=== PATIENT | female | born 1950 | race Caucasian/White ===

== ENCOUNTER → 2017-08-11 | Outpatient (CLI) | payer OTHER ==
[2017-08-11 16:09] LABS: ALT/SGPT 13 U/L (12-78); BLOOD UREA NITROGEN 20 mg/dl (7-18); BUN/CREATININE RATIO 27.5 (10-20); CALCIUM 8.9 mg/dl (8.5-10.1); CARBON DIOXIDE 26 mmol/L (21-32); CHLORIDE 106 mmol/L (98-107); CREATININE 0.73 mg/dl (0.60-1.20); GLUCOSE 109 mg/dl (70-99); POTASSIUM 3.9 mmol/L (3.5-5.1); SODIUM 142 mmol/L (136-145)
[2017-08-11 16:19] LABS: ALB/GLOB RATIO 0.9 (0.9-2); ALKALINE PHOSPHATASE 96 U/L (45-117); AST/SGOT 18 U/L (15-37); CHOLESTEROL 193 mg/dl (0-200); CHOLESTEROL/HDL RATIO 3.5; HDL CHOLESTEROL 55 mg/dl; LDL CHOLESTEROL CALCULATED 107 mg/dl; TRIGLYCERIDES 153 mg/dl (0-150); VERY LOW DENSITY LIPOPROT CALC 31 mg/dl
== END | disposition home or self-care (01) ==
LOC: C.LABBC 09:27
PROVIDERS: ATTEND Internal Medicine
DX: Z00.00 Encounter for general adult medical examination without abnormal findings (principal); Z11.59 Encounter for screening for other viral diseases; R73.09 Other abnormal glucose; E78.5 Hyperlipidemia, unspecified

== ENCOUNTER → 2017-10-01 | Outpatient (CLI) | payer OTHER ==
--- NOTE | 2017-10-01 15:17 | MAMMOGRAPHY REPORT ---
BILATERAL DIGITAL SCREENING MAMMOGRAM TOMOSYNTHESIS WITH CAD: 10/01/2017 CLINICAL HISTORY: Routine screening. Patient has no complaints. TECHNIQUE: Breast tomosynthesis in addition to standard 2D mammography was performed. Current study was also evaluated with a Computer Aided Detection (CAD) system. COMPARISON: Comparison is made to exams dated: 02/13/2016 mammogram, 09/12/2014 mammogram, 09/09/2013 mammogram, 09/08/2012 mammogram, 09/06/2011 mammogram, and 09/05/2010 mammogram - [facility]. BREAST COMPOSITION: The tissue of both breasts is heterogeneously dense, which may obscure small mas ses. FINDINGS: No suspicious masses, calcifications, or areas of architectural distortion are noted in ei ther breast. There has been no significant interval change compared to prior exams. Scattered bilate ral benign-appearing calcifications are again noted. IMPRESSION: ACR BI-RADS CATEGORY 2: BENIGN There is no mammographic evidence of malignancy. A 1 year screening mammogram is recommended. The pa tient will receive written notification of the results. Approximately 10% of breast cancers are not detected with mammography. A negative mammographic report should not delay biopsy if a clinically suggestive mass is present. Sarah Grewal M.D. /:10/01/2017 12:40:13 Perfect Binder Feeder Offbearer: Edith MORALES)(M), [facility] [address] letter sent: Normal 1/2 BI-RADS Code: ACR BI-RADS Category 2: Benign
== END | disposition home or self-care (01) ==
LOC: C.MAMM 11:06
PROVIDERS: ATTEND Obstetrics & Gynecology
DX: Z12.31 Encounter for screening mammogram for malignant neoplasm of breast (principal)

== ENCOUNTER → 2018-02-10 | Outpatient (CLI) | payer OTHER ==
[2018-02-10 12:48] LABS: ALBUMIN 3.9 gm/dl (3.4-5.0); ALT/SGPT 16 U/L (12-78); AST/SGOT 14 U/L (15-37); BLOOD UREA NITROGEN 18 mg/dl (7-18); CALCIUM 8.9 mg/dl (8.5-10.1); CARBON DIOXIDE 28 mmol/L (21-32); CREATININE 0.82 mg/dl (0.60-1.20); GLUCOSE 90 mg/dl (70-99); SODIUM 141 mmol/L (136-145)
[2018-02-10 12:51] LABS: ALKALINE PHOSPHATASE 84 U/L (45-117); TOTAL PROTEIN 7.9 gm/dl (6.4-8.2)
== END | disposition home or self-care (01) ==
LOC: C.LAB1850 10:50
PROVIDERS: ATTEND Internal Medicine
DX: E78.5 Hyperlipidemia, unspecified (principal)

== ENCOUNTER 2021-02-27 08:27 | Observation (INO) ==
--- NOTE | 2021-01-26 11:50 | PAT Medication Instructions ---
Medication Instructions Date of Service January 26, 2021 Home Medications Medication Instructions Recorded atorvastatin 20 mg tablet 20 mg PO QPM #90 tab 04/05/20 lorazepam 0.5 mg tablet 0.5 mg PO DAILY PRN #2 tab 05/11/20 Wheeled Walker #1 ea 01/04/21 multivitamin 1 tab PO DAILY atorvastatin 20 mg tablet 20 mg PO QPM lorazepam 0.5 mg tablet 0.5 mg PO DAILY PRN calcium carbonate [Calcium 500] 500 mg PO QPM carbidopa-levodopa 2 tab PO UD sertraline 25 mg PO QPM DO NOT take the morning of surgery multivitamin 1 tab PO DAILY Take morning of surgery With a small sip of water, OTHERWISE NOTHING TO EAT OR DRINK AFTER MIDNIGHT: lorazepam 0.5 mg tablet 0.5 mg PO DAILY PRN (if needed) carbidopa-levodopa 2 tab PO UD Take evening before surgery atorvastatin 20 mg tablet 20 mg PO QPM lorazepam 0.5 mg tablet 0.5 mg PO DAILY PRN (if needed) calcium carbonate [Calcium 500] 500 mg PO QPM carbidopa-levodopa 2 tab PO UD sertraline 25 mg PO QPM Other Notes If you have any questions please call us at [phone] or [phone] or [phone] or [phone]
--- NOTE | 2021-01-30 10:59 | Anesthesiology Consultation ---
Date of Service January 30, 2021 Assessment & Plan (1) Encounter for pre-operative examination: COVID Status: As of 01/30 assessment, patient denies travel to endemic area, known exposure/sick contacts, or symptoms of COVID19. Patient instructed that they and their household members must follow strict social distancing guidelines, wear a mask in public and avoid travel/events/gatherings for 14 days prior to surgery. Preoperative COVID19 testing to be completed prior to surgery per surgeon's arrangements (pt aware). Patient made aware to self-isolate as much as possible between COVID testing and surgery. Pt is fully vaccinated. Patient has Parkinson's disease and notes that her tremor is significantly exacerbated by anxiety. Tremor is pronounced in right upper extremity and also noted in right lower extremity on exam at [facility]. She is concerned about her tremor interfering with the surgery or nerve blocks. Reassurance provided. Explained that we will give her medication that will calm her nerves and make her sleepy prior to doing SAB/regional block, and this will hopefully reduce her tremor to a level that will allow the anesthesiologist to perform the appropriate nerve blocks. Vertigo -- patient notes that she must have her head elevated above her shoulders during surgery, otherwise she will experience debilitating vertigo. Chart Review Chart Review: Acceptable Risk for Surgery and Patient seen in Pre Admission Testing Teaching & Discussion Instructed NPO after midnight before surgery, except medications with 15 cc of water. Medication instructions provided according to the [facility] guidelines. History Surgery Operation Date: 02/27/21 07:00 Proposed Procedures p Right Total Knee Arthroplasty - Nelson Roach MD Height/Weight Height: 5 ft 9 in Weight: 90.5 kg Allergies Allergy/AdvReac Type Severity Reaction Status Date / Time No Known Drug Allergies Allergy Verified 01/18/21 16:31 Medications Home Medications Medication Instructions Recorded Confirmed Last Taken multivitamin 1 tab PO DAILY 06/30/19 01/18/21 Unknown atorvastatin 20 mg tablet 20 mg PO QPM #90 tab 04/05/20 01/18/21 Unknown lorazepam 0.5 mg tablet 0.5 mg PO DAILY PRN #2 tab 05/11/20 01/18/21 Unknown Wheeled Walker #1 ea 01/04/21 Unknown calcium carbonate [Calcium 500] 500 mg PO QPM 01/18/21 01/18/21 Unknown carbidopa-levodopa 2 tab PO UD 01/18/21 01/18/21 Unknown sertraline 25 mg PO QPM 01/18/21 01/18/21 Unknown Past Medical History Medical History Hammer toe History of anxiety History of basal cell carcinoma History of depression History of transesophageal echocardiography (AYESHA) HLD (hyperlipidemia) Osteoarthritis Parkinson's disease Prediabetes A1C 6.0% Exercise / Class Metabolic Activity III < 4 Walking/Shop/Light housework (Denies SOB/CP with ambulation on one level, +SOB with any more exertion due to general inactivity/deconditioning) Past Family History Family History Mother Kidney disease Hypertension Stroke Brother Sigmoid colon injury Father Kidney disease Spinal stenosis Other Heart disease No family history of adverse response to anesthesia Osteoporosis Past Surgical History Surgical History H/O oral surgery History of basal cell carcinoma (BCC) excision History of colonoscopy S/P breast biopsy S/P dilation and curettage S/P tonsillectomy S/P tubal ligation S/P wisdom tooth extraction Past Anesthesia History No Hx of Anesthesia Complications and No Family Hx of Anesthesia Complications History of PONV No Hx of PONV and No Hx of Motion Sickness Social History Smoking Status: Never smoker Do You Dip or Chew Tobacco: No Hx Alcohol Use: No Hx Substance Use: No substance use type: does not use Review of Systems Pt denies any recent chest pain, shortness of breath, palpitations, cough, fever, URI, or uncontrolled acid reflux. Physical Exam Vital Signs BP: 153/81 (patient is very anxious today) P: 102bpm SPO2: 95% RA T: 97.5F R: 12 ENMT Mouth: + dentures (partial, does not wear usually); no chipped teeth and no loose teeth Thyromental Distance: > or= 3.5 Finger Breadths Mallampati Class: II Neck normal visual inspection and + limited neck extension (mildly) Respiratory normal respiratory effort, lungs clear to auscultation Cardiovascular Rate/Rhythm: regular rhythm and + tachycardic Heart Sounds: no murmur Extremities: no edema Neurologic Motor/Sensory: + tremor (pronounced, bradley in RUE) Testing Laboratory Results 01/30/21 11:02 01/30/21 11:02 PT 10.0 Seconds (9.0-12.0) 01/30/21 11:02 INR 1.0 (0.9-1.1) 01/30/21 11:02 APTT 22.7 Seconds (21.0-31.0) 01/30/21 11:02 Blood Type A Positive 01/30/21 11:02 Antibody Screen NEGATIVE 01/30/21 11:02 Electrocardiogram Date: 01/30/21 Findings: + NSR @ (90bpm) Nonspecific T wave abnormality. Patient was significantly anxious/tense, some artifact noted on EKG. Chest X-Ray Date: 01/30/21 Findings: + NAD
--- NOTE | 2021-01-30 11:35 | XRay Report ---
XR chest Pre-admission PA/Lat CLINICAL HISTORY: Preoperative chest COMPARISON STUDY: No previous studies for comparison. FINDINGS: The cardiac and mediastinal contours are normal. There is no evidence of focal pulmonary co nsolidation. There is no evidence of failure. No pleural effusions are visualized.[There is a promine nt left cardiophrenic angle fat pad. IMPRESSION: No active disease in the chest. ACT 112: Negative or not required by law. Electronically signed by: Arash Amezquita M.D. 01/30/2021 11:34 AM
[2021-01-30 11:36] LABS: Basophils # (auto) 0.05 K/uL (0-0.2); Basophils % (auto) 0.5 %; Eosinophils % (auto) 2.1 %; Hematocrit (blood only) 39.8 % (37-47); Hemoglobin 12.9 g/dL (12.0-16.0); Immature Granulocytes # (auto) 0.03 K/uL (0.00-0.02); Immature Granulocytes % (auto) 0.3 %; Lymphocytes # (auto) 3.35 K/uL (1.2-3.4); Lymphocytes % (auto) 34.9 %; Mean Corpuscular Hgb Conc 32.4 g/dL (32-36); Mean Corpuscular Volume 89.4 fL (80-100); Mean Platelet Volume 10.4 fL (7.4-10.4); Monocytes # (auto) 0.53 K/uL (0.11-0.59); Monocytes % (auto) 5.5 %; Neutrophils # (auto) 5.44 K/uL (1.4-6.5); Neutrophils % (auto) 56.7 %; Platelet Count 251 K/uL (130-400); RDW Coefficient of Variation 13.4 % (11.5-14.5); RDW Standard Deviation 44.1 fL (36.4-46.3); Red Blood Count 4.45 M/uL (4.2-5.4)
[2021-01-30 11:46] LABS: Partial Thromboplastin Ratio 0.9; Partial Thromboplastin Time 22.7 Seconds (21.0-31.0)
[2021-01-30 13:13] LABS: BUN Creatinine Ratio 32.7 (10-20); Calcium 8.9 mg/dl (8.5-10.1); Creatinine Clr Calc Pharmacy 87.1 ml/min; Est GFR (African American) 98.3; Est GFR (Non-African American) 84.9
--- NOTE | 2021-01-30 14:47 | Electrocardiogram Report ---
Test Reason : Blood Pressure : / mmHG Vent. Rate : 090 BPM Atrial Rate : 090 BPM P-R Int : 140 ms QRS Dur : 070 ms QT Int : 330 ms P-R-T Axes : 070 059 024 degrees QTc Int : 403 ms Normal sinus rhythm Nonspecific T wave abnormality Abnormal ECG No previous ECGs available Confirmed by August Jang ([id number]) on 01/30/2021 2:46:37 PM Referred By: Nelson Roach Confirmed By:August Jang
--- NOTE | 2021-02-20 23:25 | History and Physical Report ---
DATE OF ADMISSION: 02/27/2021 CHIEF COMPLAINT: Right knee pain. HISTORY OF PRESENT ILLNESS: The patient is a 71-year-old female with some underlying Parkinson's disease, who presents for surgical treatment of her right knee. She has got a long history of right knee pain and discomfort that has gradually gotten worse over time. She was actually scheduled to have her knee replaced, but her pain seemed to be getting a little bit better and we canceled her surgery. Over the past year, she developed increased pain and discomfort and it has gotten particularly worse over the past 6-8 months. No recent injury. It hurts her all the time. It is global pain. The more she is on it, the more it hurts. She has difficulty living an independent lifestyle due to this. She would like to have her knee fixed now. PAST MEDICAL HISTORY: 1. Parkinson's disease. 2. Gastroesophageal reflux disease. 3. Hiatal hernia. PAST SURGICAL HISTORY: Previous surgeries, none recorded. ALLERGIES: None. CURRENT MEDICATIONS: Include, 1. Carbidopa/levodopa. 2. Sertraline. 3. Lorazepam 0.5 mg p.r.n. 4. ICAPS. SOCIAL HISTORY: A 71-year-old female. She is . Lives with her son. Does not smoke. FAMILY HISTORY: Noncontributory. REVIEW OF SYSTEMS: Significant for Parkinson's disease, which affects the right lower extremity more than the left. No current chest pain or shortness of breath. No history of DVT or PE. No known bleeding problems. PHYSICAL EXAMINATION: GENERAL: Physical examination shows a pleasant elderly female. Looks to be in reasonably good health. HEENT: Benign. NECK: Supple. No lymphadenopathy. LUNGS: Clear to auscultation. HEART: Regular rate and rhythm. ABDOMEN: Soft, nontender, nondistended. EXTREMITIES: Grossly neurovascularly intact except as follows. Examination of the right leg revealed the patient walks with a bit of a limp on the side. She does have a tremor on the right side more so than the left. Her range of motion is about 5 degrees short of full extension to 120 degrees of flexion. She has got bony hypertrophy medially and tender along the medial joint line. Small knee effusion. No pain with hip motion. X-RAYS: X-rays of the right knee reviewed. She has advanced right knee DJD. She has complete loss of medial joint space. She has got some tibiofemoral subluxation. She has got osteophytes primarily on the medial side of her knee. ASSESSMENT: A 71-year-old female with underlying Parkinson's disease along with some gastroesophageal reflux disease and a hiatal hernia with advanced right knee degenerative joint disease. She has been scheduled for surgery in the past but canceled as her symptoms were pretty manageable. Symptoms progressed over the past 6-8 months and she would like to have her knee fixed now. PLAN: Will proceed with right knee replacement. The risks and benefits of the procedure were explained to the patient including, but not limited to, DVT, PE, , infection, neurological injury, neurovascular injury, bleeding problems, pain, limited range of motion, stiffness, failure to relieve symptoms, incomplete relief of symptoms, need for further surgery in the future, fracture, leg length inequality, nerve palsy, etc. The patient understands and desires to proceed. Informed consent was obtained. We did talk about her Parkinson's disease and it makes the results a little bit less predictable especially with knee extension and spasticity. We will work hard on getting her knee straight. As far as discharge plan, she is planning to be discharged to home using [facility] home health program. Lives with her son and her daughter is from out of town who is coming in to assist with her care.
[~2021-02-27 08:27] MED LIST: ACETAMINOPHEN 500 MG TAB PO SCH; BUPIVACAINE 0.25% 30 ML VIAL ONE; BUPIVACAINE 0.5 % 5 MG/1 ML PF 10ML VIAL ONE; BUPIVACAINE LIPOSOME/PF 266 MG, BUPIVACAINE/EPINEPHRINE 50 ML, SODIUM CHLORIDE 0.9% 30 ... INFIL SCH; FAMOTIDINE 20 MG TAB PO SCH; GABAPENTIN 300 MG CAP PO SCH; LR 500ML BOLUS, THEN 15ML/HR IV SCH; LR 60ML/HR IV SCH; METOCLOPRAMIDE HCL 10 MG TABLET PO SCH; Scopolamine 1 MG TDSY TD SCH; TRANEXAMIC ACID 1,000 MG **IV Intra-op IV SCH; TRANEXAMIC ACID 1,000 MG **IV Pre-op IV SCH; ceFAZolin 2000MG 2,000 MG/15 ML SYR IV SCH
--- NOTE | 2021-02-27 08:53 | History & Physical Bridge Note ---
Date of Service February 27, 2021 History & Physical Bridge Note I have examined the patient, reviewed the History & Physical and in the interval since the performance of the History & Physical I have noted the following changes of clinical significance: no changes noted
[2021-02-27] MEDS ORDERED: MIDAZOLAM HCL 1 MG/ML 2ML VIAL ONE (10:11)
[2021-02-27] MEDS ORDERED: SODIUM CHLORIDE 0.9% PF 50 ML VIAL ONE (10:57)
[2021-02-27] MEDS ORDERED: BUPIVACAINE 0.25% 30 ML VIAL ONE (10:57)
[2021-02-27] MEDS ORDERED: EPINEPHrine INJ 1 MG/ML AMP ONE (10:57)
[2021-02-27] MEDS ORDERED: BUPIVACAINE LIPOSOME 1.3% 266 MG/20 ML VIAL ONE (10:58)
[2021-02-27] MEDS ORDERED: ONDANSETRON INJ 2 MG/ML 2 ML VIAL IV PRN ×2 (11:08→14:53)
[2021-02-27] MEDS ORDERED: ePHEDrine sulfate 50 MG/ML AMP IV PRN (11:08)
[2021-02-27] MEDS ORDERED: ATROPINE SULFATE 0.1 MG/ML 10ML SYR IV PRN (11:08)
[2021-02-27] MEDS ORDERED: PROPOFOL IV EMULSION 10 MG/ML 20 ML VIAL IV ONE (11:44)
[2021-02-27] MEDS ORDERED: ONDANSETRON INJ 2 MG/ML 2 ML VIAL ONE (11:45)
--- NOTE | 2021-02-27 13:02 | Operative Report ---
Post Operative Report Pre & Post Diagnosis Operation Date: 02/27/21 10:40 Pre-Op Diagnosis: Right Knee Degenerative Joint Disease Post-Op Diagnosis: Right Knee Degenerative Joint Disease I identified the patient and participated in the time-out.: Yes Procedure Operation Date: 02/27/21 10:40 Actual Procedures p Right Total Knee Arthroplasty, Cemented(Right) - Nelson Roach MD Surgeon Nelson Roach MD University Relations Director GORDO Thorne Estimated Blood Loss 50 Findings Consistent with Post-Op Diagnosis Operative findings with advanced right knee DJD. She had grade 4 [id number] disease of the medial as well as patellofemoral compartments. She had some spotty grade 4 changes laterally as well. She had a varus deformity to her knee with a slight flexion contracture and a moderate to large knee joint effusion. Fluids 1500 cc. Specimens Right knee sent for pathology. Drains None. Anesthesia Type Spinal MAC Complications none Disposition Accompanied Patient To Recovery: No Disposition: Recovery Room Indications Patient is a 71-year-old female whose had a long history of bilateral knee pain discomfort right side greater than left. She been to the extent of conservative treatment the past which became less successful more recently. She does have underlying Parkinson's disease. She is having more more trouble getting around and she elected to a total knee arthroplasty. Description of Procedure Operative implants consist of: 1. Biomet Vanguard size 67.5 right posterior stabilized femoral component. 2. Biomet size 67 tibial tray. 3. 10 mm posterior stabilized polyethylene insert. 4. 31 x 8 all polypatella. The patient was taken to the operating room, identified, placed in the operating table supine position but all contact areas were properly padded. IV antibiotics tried by anesthesia team. A spinal anesthetic and abductor canal block had provided holding area. Boyd catheter was placed in sterile fashion. Right thigh tip was then placed in the right lower extremities and prepped and draped in usual sterile fashion. The right leg was elevated exsanguinated with the use of an Esmarch and tourniquet placed at 300 mmHg. An anterior approach to the right knee was then performed through longitudinal incision centered over the patella. Sharp dissection was carried through subcutaneous tissue down the extensor mechanism. A medial parapatellar arthrotomy with incision was made. Some subperiosteal dissection was carried out medially. The fat pad was resected from each patella tendon. Lateral patellofemoral ligament was released. Patella was subluxated laterally and the knee was flexed. The osteophytes were taken off distal femur. The ACL and PCL were then released from the distal femur and the tibia subluxated anteriorly. The external tibial alignment jig was then placed in the interface the tibia and adjusted 14 mm medially. Proximal tibial cut was made remove about a millimeter or 2 of bone from the most deficient aspect medial tibial plateau. Some osteophytes taken off medial and posterior medially. Tibia sized to a size 67. We did have to downsize a slightly in order to get proper rotation. Attention drawn the femur. The distal femur during the sharp drop with intramedullary canal was suction. A right 5 degree valgus cutting guide was placed. The distal femoral cutting block was pinned in place. Distal femoral cut was made to take an additional 3 mm of bone off distal femur. The femur was then sized to a size 67.5. The AP cutting block was pinned parallel to the epicondylar axis which was 3 degrees of external rotation. The anterior cut, anterior chamfer, posterior cut, posterior chamfer cuts were made. The box cutting guide was placed in just slight lateral and the box cut was made. The knee was flexed. The remnants of the medial and lateral menisci were excised. The osteophytes were taken off the posterior aspect the femur. A trial femoral component was placed. The tibial tray was pinned in maximum external rotation and the drill and stem punch were used to create defect in proximal tibia for the tibial tray. Knee was then trialed and the 10 mm insert fit most appropriately. I did 1 to leave her knee a little bit loose due to her Parkinson's disease and tendency toward spasticity. Attention drawn to the patella. The patella was cleaned of all soft tissues. Patella thickness measured 21 mm in thickness was cut down to 13. Was sized to a size 31 patella. The lug holes for the 31 patella were drilled. The lateral osteophyte was removed. Patella button was placed. Knee was taken through range of motion patella tracked nicely with no thumbs test. Attention drawn to placing permanent components. Nupathe all trial components were removed. A bone plug was placed in the distal femur limit blood loss. A double batch Palacos G cement was mixed. BiomGeoGraffitiguard size 67.5 right posterior stabilized femoral component, size 67 tibial tray, a 10 mm posterior stabilized polyethylene insert, and a 31 x 8 all polypatella were then cemented in place. Knee was brought out in full extension total cement hardened. Final cement check was then performed. Pericapsular tissues were injected with a total of 100 cc of combination of 20 cc of Exparel, 30 cc normal saline, 50 cc of quarter percent Marcaine with epinephrine. Patient did receive 1 g tranexamic acid. The tourniquet was then let down for final tourniquet time of 54 minutes. Hemostasis assured use electrocautery. Extensor mechanism then closed with combination 1 PDS suture #1 Vicryl suture in [id number] fashion. Extensor mechanism checked found to be intact the subcutaneous tissue then closed with 2 Dexon suture in a buried interrupted fashion skin was closed skin maile. Leg was then cleaned dried a sterile dressing both Xeroform, 4 x 4's, sterile cast padding, Kenan bandage were applied. Patient then transferred to the recovery room in stable condition. Patient tolerated procedure well and there were no complications. Jarad Thorne, my physician data analysis assistant, was present for the entire procedure. His assistance was essential and required for appropriate patient positioning, prepping and draping, surgical exposure, performing the technical details of the operation, placement the implants, closure of the wound, and placement of the sterile bandage. I attest to the content of the Intraoperative Record and any orders documented therein. Any exceptions are noted below.
--- NOTE | 2021-02-27 13:17 | XRay Report ---
XR knee RT 1 or 2V routine CLINICAL HISTORY: Postoperative evaluation. COMPARISON: Right knee radiographs November 21, 2020. FINDINGS: Alignment of the total right knee arthroplasty is anatomic. There is no periprosthetic fra cture or unexpected radiopaque foreign body. There are skin maile. IMPRESSION: Expected findings following total right knee arthroplasty. ACT 112: Negative or not required by law. Electronically signed by: Brown Gould M.D. 02/27/2021 1:16 PM
--- NOTE | 2021-02-27 14:10 | Anesthesiology Progress Note ---
Date of Service February 27, 2021 Anesthesia Post Procedure Vital Signs Vital Signs: Temp Pulse Resp BP BP Pulse Ox 02/27/21 13:25 36.5 C 88 20 128/67 94 02/27/21 13:15 36.5 C 86 16 121/66 94 02/27/21 13:05 97 H 19 145/60 H 95 02/27/21 12:56 36.0 C L 97 H 16 116/75 98 02/27/21 09:39 36.7 C 103 H 18 156/79 H 98 Transfer of Care Handoff Completed per policy Notes Mental Status: alert / awake / arousable and participated in evaluation Patient Amnestic to Procedure: Yes Nausea / Vomiting: adequately controlled Pain: adequately controlled Airway Patency, RR, SpO2: stable & adequate BP & HR: stable & adequate Hydration State: stable & adequate Neuraxial Anesthesia: was administered and sensory block is resolving Anesthetic Complications: no major complications apparent and Pt Satisfied with anesthetic care
[2021-02-27] MEDS ORDERED: bisacodyL 10 MG SUPP PR PRN (14:53)
[2021-02-27] MEDS ORDERED: ALUMINUM/MAGNESIUM SUSP 30 ML UDC PO PRN (14:53)
[2021-02-27] MEDS ORDERED: traMADol HCL 50 MG TABLET PO PRN (14:53)
[2021-02-27] MEDS ORDERED: NALOXONE HCL 0.4 MG/1 ML VIAL/CARP IV PRN (14:53)
[2021-02-27] MEDS ORDERED: METOCLOPRAMIDE HCL INJ 5 MG/ML 2 ML VIAL IV PRN (14:53)
[2021-02-27] MEDS ORDERED: HYDROmorphone INJ 0.5 MG/0.5 ML SYR IV PRN (14:53)
[2021-02-27] MEDS ORDERED: MAGNESIUM HYDROXIDE SUSP 30 ML UDC PO PRN (14:53)
[2021-02-27] MEDS: CARBIDOPA/LEVODOPA 25/100MG TAB PO SCH ×2 (15:51→19:50)
[2021-02-27] MEDS: KETOROLAC TROMETHAMINE 15 MG/ML VIAL IV SCH ×2 (16:00→21:12)
[2021-02-27] MEDS: SODIUM CHLORIDE 0.9% 1000ML 1,000 ML IV SCH (16:01)
[2021-02-27] MEDS: Scopolamine CHECK PATCH PLACEMENT SCH ×2 (16:01→22:14)
[2021-02-27] MEDS: ASCORBIC ACID 500 MG TAB PO SCH (17:57)
[2021-02-27] MEDS: ACETAMINOPHEN 500 MG TAB PO SCH ×2 (17:57→22:14)
[2021-02-27] MEDS: FERROUS GLUCONATE 324 MG TAB PO SCH (17:57)
[2021-02-27] MEDS ORDERED: TRANEXAMIC ACID / 0.7% NACL 1,000 MG/100 ML BAG IV SCH (19:00)
[2021-02-27] MEDS: PROSOURCE NO CARB 30 ML/PKT PO SCH (19:13)
[2021-02-27] MEDS: ceFAZolin 2000MG 2,000 MG/15 ML SYR IV SCH (19:50)
[2021-02-27] MEDS ORDERED: ATORVASTATIN 20 MG TAB PO SCH (21:00)
[2021-02-27] MEDS ORDERED: SENNA 8.6 MG TAB PO SCH (21:00)
[2021-02-27] MEDS ORDERED: CARBIDOPA/LEVODOPA 25/100MG TAB PO SCH (21:00)
[2021-02-27] MEDS ORDERED: SERTRALINE HCL 50 MG TABLET PO SCH (21:00)
[2021-02-27] MEDS ORDERED: CALCIUM CARBONATE 1250MG TAB PO SCH (21:00)
[2021-02-27] MEDS: ASPIRIN 81 MG ECTAB PO SCH (21:09)
[2021-02-27] MEDS: DOCUSATE SODIUM 100 MG CAP PO SCH (21:10)
[2021-02-28] MEDS: SODIUM CHLORIDE 0.9% 1000ML 1,000 ML IV SCH (02:51)
[2021-02-28] MEDS: ACETAMINOPHEN 500 MG TAB PO SCH ×2 (05:22→14:49)
[2021-02-28] MEDS: ceFAZolin 2000MG 2,000 MG/15 ML SYR IV SCH (05:22)
[2021-02-28] MEDS: KETOROLAC TROMETHAMINE 15 MG/ML VIAL IV SCH ×3 (05:22→16:32)
[2021-02-28 06:51] LABS: Hematocrit (blood only) 33.2 % (37-47); Hemoglobin 10.7 g/dL (12.0-16.0); Mean Corpuscular Hemoglobin 28.6 pg (25-34); Mean Corpuscular Hgb Conc 32.2 g/dL (32-36); Mean Corpuscular Volume 88.8 fL (80-100); Mean Platelet Volume 10.2 fL (7.4-10.4); Platelet Count 195 K/uL (130-400); RDW Coefficient of Variation 13.4 % (11.5-14.5); RDW Standard Deviation 43.8 fL (36.4-46.3); Red Blood Count 3.74 M/uL (4.2-5.4); White Blood Count 9.14 K/uL (4.8-10.8)
[2021-02-28 07:24] LABS: Calcium 8.7 mg/dl (8.5-10.1); Creatinine Clr Calc Pharmacy 82.4 ml/min; Est GFR (African American) 92.1; Est GFR (Non-African American) 79.5; Potassium 4.1 mmol/L (3.5-5.1)
[2021-02-28] MEDS: CARBIDOPA/LEVODOPA 25/100MG TAB PO SCH ×2 (07:32→14:49)
[2021-02-28] MEDS: FERROUS GLUCONATE 324 MG TAB PO SCH (07:33)
[2021-02-28] MEDS: ASCORBIC ACID 500 MG TAB PO SCH (07:33)
[2021-02-28] MEDS: Scopolamine CHECK PATCH PLACEMENT SCH (07:35)
[2021-02-28] MEDS: PROSOURCE NO CARB 30 ML/PKT PO SCH ×2 (07:57→12:42)
[2021-02-28] MEDS ORDERED: dexAMETHasone 4 MG TAB PO SCH (08:00)
[2021-02-28] MEDS: ASPIRIN 81 MG ECTAB PO SCH (08:57)
[2021-02-28] MEDS: DOCUSATE SODIUM 100 MG CAP PO SCH (08:57)
[2021-02-28] MEDS ORDERED: LORazepam 1 MG TAB PO SCH (09:00)
[2021-02-28] MEDS ORDERED: MULTIVITAMIN TAB PO SCH ×2 (09:00)
--- NOTE | 2021-02-28 16:19 | Progress Notes ---
DATE: 02/28/2021 SUBJECTIVE: A 71-year-old female postop day 1 from right knee replacement. She is doing well. Not having near as much pain as she expected. Therapy went well. No chest pain or shortness of breath. Not feeling dizzy or lightheaded. OBJECTIVE: VITAL SIGNS: Temperature 36.5. Vital signs stable. GENERAL: Shows a pleasant elderly female. She is sitting up at her bedside chair, looks comfortable. LUNGS: Clear to auscultation. HEART: Regular rate and rhythm. ABDOMEN: Soft, nontender, nondistended. EXTREMITIES: Grossly neurovascularly intact except as follows. Examination of the right leg reveals the dressing to be clean, dry and intact. She can dorsiflex and plantarflex her foot appropriately. She is neurologically intact. She has got brisk refill. LABORATORY DATA: Hemoglobin 10.7. Hematocrit 33.2. Electrolytes are stable. ASSESSMENT: A 71-year-old female postop day 1 from right knee replacement, doing well. Pain is controlled. She is neurologically intact. PLAN: 1. DVT prophylaxis including thigh-high TEDs, SCDs, and aspirin twice a day. 2. PT/OT. Weight bear as tolerated. Right total knee protocol. 3. Pain control, doing well with current pain regimen. 4. Disposition: Plan to discharge to home with some home health later today.
== END 2021-02-28 16:45 | disposition home health service (06) ==
LOC: 3E 08:27 → ASU 08:27

== ENCOUNTER 2021-04-23 10:59 | Inpatient (IN) ==
[2021-04-23] MEDS ORDERED: ASPIRIN CHEW 324 MG PO STA (11:55)
[2021-04-23] MEDS ORDERED: dilTIAZem HCl 5 MG/ML 5 ML VIAL IV STA (11:55)
[2021-04-23] MEDS ORDERED: STAT IV Infusion **Titration per Protocol STA (11:56)
[2021-04-23] MEDS ORDERED: dilTIAZem HCl 5 MG/ML 5 ML VIAL IV ONE (11:56)
[2021-04-23 12:03] LABS: Basophils # (auto) 0.07 K/uL (0-0.2); Basophils % (auto) 0.7 %; Eosinophils # (auto) 0.15 K/uL (0-0.5); Eosinophils % (auto) 1.6 %; Hematocrit (blood only) 42.1 % (37-47); Hemoglobin 13.3 g/dL (12.0-16.0); Immature Granulocytes # (auto) 0.02 K/uL (0.00-0.02); Immature Granulocytes % (auto) 0.2 %; Lymphocytes # (auto) 3.46 K/uL (1.2-3.4); Mean Corpuscular Hgb Conc 31.6 g/dL (32-36); Mean Corpuscular Volume 91.7 fL (80-100); Mean Platelet Volume 10.7 fL (7.4-10.4); Monocytes # (auto) 0.66 K/uL (0.11-0.59); Monocytes % (auto) 6.9 %; Neutrophils # (auto) 5.24 K/uL (1.4-6.5); Neutrophils % (auto) 54.6 %; Platelet Count 319 K/uL (130-400); RDW Coefficient of Variation 13.7 % (11.5-14.5); Red Blood Count 4.59 M/uL (4.2-5.4)
[2021-04-23 12:10] LABS: Partial Thromboplastin Ratio 0.8; Partial Thromboplastin Time 21.7 Seconds (21.0-31.0); Prothrombin Time 10.2 Seconds (9.0-12.0)
[2021-04-23 12:13] LABS: D Dimer 2140 ug/L FEU (0-500)
[2021-04-23] MEDS: dilTIAZem HCL 125 MG in DEXTROSE 5% 100 ML IV SCH ×2 (12:13→22:45)
[2021-04-23 12:37] LABS: BUN Creatinine Ratio 23.6 (10-20); Blood Urea Nitrogen 19 mg/dl (7-18); Carbon Dioxide 25 mmol/L (21-32); Chloride 108 mmol/L (98-107); Creatinine Clr Calc Pharmacy 73.1 ml/min; Est GFR (Non-African American) 72.5 ml/min; Glucose 135 mg/dl (70-99); Lipase 169 U/L (73-393); Magnesium 2.3 mg/dl (1.8-2.4); Potassium 3.7 mmol/L (3.5-5.1); Sodium 140 mmol/L (136-145)
[2021-04-23 12:42] LABS: Troponin I < 0.015 ng/ml (0-0.045)
[2021-04-23] MEDS ORDERED: OPTIRAY 320 100ml IV ONE (13:29)
--- NOTE | 2021-04-23 13:50 | CT Scan Report ---
CT ANGIOGRAM OF THE CHEST CLINICAL HISTORY: Atypical chest pain. Dyspnea. COMPARISON STUDY: Chest x-ray dated 01/30/2021. TECHNIQUE: Following the IV administration of 120 cc of Optiray 320, CT angiogram of the chest was pe rformed from the upper abdomen to the thoracic inlet utilizing the pulmonary embolus protocol. Images are reviewed in the axial, sagittal, and coronal planes. 3-D MIPS images are created and assessed. I V contrast was administered without complication. A dose lowering technique was utilized adhering to the principles of ALARA. CT DOSE: 634.69 mGy.cm FINDINGS: Thyroid: Imaged portions of the thyroid gland are normal in size and attenuation. Thoracic aorta: There is mild atherosclerotic calcification of the thoracic aorta, which is normal in caliber and demonstrates standard 3-vessel arch anatomy. No dissection is seen. Pulmonary vasculature: The pulmonary trunk is normal in caliber. There are no filling defects identif ied in main, lobar, or segmental pulmonary branches to suggest pulmonary embolus. Heart: The heart is mildly enlarged and without pericardial effusion. There are scattered coronary ar sebas calcifications. Lungs and pleural spaces: Evaluation of the lung parenchyma is degraded by motion artifact. There is no airspace consolidation or pleural effusion. Atelectasis is noted at the lung bases. The trachea an d central airways are clear. A 4 mm left lower lobe pulmonary nodule is seen on image #66. There are scattered calcified granulomas. Mediastinum: There is no mediastinal lymphadenopathy. Litzy: Clear. Axillae: There is no axillary lymphadenopathy. Upper abdomen: Partially visualized upper abdominal viscera is within normal limits. Skeletal structures: The skeletal structures are osteopenic. No lytic or blastic bony lesions are see n. IMPRESSION: 1. There is no evidence of pulmonary embolus in the main, lobar, or segmental pulmonary arteries. 2. There is no airspace consolidation or pleural effusion. 3. Mild cardiomegaly. 4. There is a 4 mm left lower lobe pulmonary nodule. This can be followed as per the Fleischner crite henry if clinically warranted. 5. Additional findings as above. Please refer to below summary of Fleischner criteria recommendations for follow-up of incidental CT n odules (Oscar Marcus, Guidelines for management of small pulmonary nodules detected on CT scans: A sta tement from the Fleischner Society, Radiology 237: [id number].) SOLID NODULES Solitary nodule size: <6 mm * low risk patients: no follow-up needed * high risk patients: optional CT at 12 months Solitary nodule size: 6-8 mm * low risk patients: follow-up at 6-12 months, then consider further follow-up at 18-24 months * high risk patients: initial follow-up CT at 6-12 months and then at 18-24 months if no change Solitary nodule size: >8 mm * either low or high risk patients - consider follow-up CT at 3 months, and/or CT-PET, and/or biopsy Multiple nodules size: <6 mm * low risk patients: no routine follow-up * high risk patients: optional CT at 12 months Multiple nodules size: 6-8 mm * low risk patients: follow-up at 3-6 months, then consider further follow-up at 18-24 months * high risk patients: follow-up at 3-6 months, then at 18-24 months if no change Multiple nodules size: >8 mm * low risk patients: follow-up at 3-6 months, then consider further follow-up at 18-24 months * high risk patients: follow-up at 3-6 months, then at 18-24 months if no change Note: newly detected indeterminate nodule in persons 35 years of age or older. * low risk patients: minimal or absent history of smoking and/or other known risk factors * high risk patients: history of smoking or of other known risk factors (e.g. first degree relative with lung cancer, or exposure to asbestos, radon, uranium) * if a nodule up to 8 mm is partly solid or is ground glass further follow-up is required after 24 m onths to exclude possible slow growing adenocarcinoma (MAE) SUBSOLID NODULES Solitary pure ground-glass nodule * nodule size <6 mm - no CT follow-up required * nodule size >=6 mm - follow-up CT at 6-12 months, then every 2 years until 5 years Solitary part-solid nodule * nodule size <6 mm - no CT follow-up required * nodule size >=6 mm - follow-up CT at 3-6 months. If unchanged, and solid component remains <6 mm, then annual follow-up for 5 years Multiple subsolid nodules * nodule size <6 mm - follow-up CT at 3-6 months, consider further follow-up at 2 and 4 years if sta ble * nodule size >=6 mm - follow-up CT at 3-6 months, subsequent management based on the most suspiciou s nodule(s) ACT 112: Negative or not required by law. Electronically signed by: Sylvester Mills M.D. 04/23/2021 1:49 PM
[2021-04-23] MEDS ORDERED: APIXABAN 5 MG TABLET PO STA (15:20)
[2021-04-23] MEDS: dilTIAZem HCl 5 MG/ML 5 ML VIAL IV PRN ×2 (15:25→15:35)
--- NOTE | 2021-04-23 15:37 | History & Physical Report ---
Date of Service April 23, 2021 Assessment & Plan (1) Afib: Variable rate and rythm, tremor from parkinson's increasing artifact as well. - Irregular with auscultation, no murmurs, no rubs - New onset afib likely- goal for tonight is rate control as time unknown in this dysrhythmia. - Continue Diltiazem drip for now- repeated 10mg IV bolus x1 in EMD with decrease in HR to 90s, still irregular and no discernable Pwaves - PRN Dilt bolus over night with goal HR 110 or less - K- 3.7-- 20 meq PO K x1 - MG- 2.3 - TSH pending - Random Cortisol pending - Symptoms of dizziness and chest tightness are resolving with rate control - Cardiology consulted- appreciate recommendations for rhythm vs. rate control options and anticoaguation. -Check echocardiogram (2) Hypertension: Continue Lisinopril 10 mg daily. - Goal <140 (3) Hyperlipidemia: No acute needs, continue 20mg Atorvastatin daily (4) Parkinsons disease: ?idiopathic, follows with neurology- declined medication adjustment at last visit - Continue Sinemet 2/100 2 daily - Recently declined dose or medication adjustment (5) Arthritis: Continue tylenol PT/OT (6) Elevated random blood glucose level: FSBG on BMP 133- no agents and not reported on PCP visits. HGB A1C last week <6.0 - no acute needs, follow while in house. - Goal <180 (7) Anticoagulation adequate: Started on Eliquis first dose given in EMD - Appreciate recommendations with cardiology - As per HPI discussion with options and needs had with patient and son. - Evaluate her through her stay and adjust therapy as indicated/needed. (8) Lung nodule: incidental finding on CT of the chest - consult placed to lung nodule program. 4mm DVT prophylaxis-Eliquis Disposition-admit to PCU History of Present Illness Primary Care Provider: Vandana Boucher MD 71 YOF with past medical history of: HTN(recently started on Lisinopril by PCP), HLD, Parkinson disease, neuropathy, DJD, s/p total R TKA (03/16). Patient reports that her rehab was doing well and she seen her PCP on Friday and was recently started on lisinopril for her HTN. She started feeling "off" on Friday, which what was further described as some palpitations in her chest as well as some tightness along her chest, she was also noting that she was having some dizziness when standing and more dyspnea than she normally has when walking with her walker. She denies any syncope or any other neurological changes. She was brought to the [facility] by her son, and was noted to be in narrow complex irregular rhythm with rates to the 150's. She was already started on Diltiazem drip following a 10mg bolus which decreased her HR to the 120's, but was back in the 140's on my evaluation, she had a CTA of her chest performed secondary to her elevated D-dimer, which did not reveal a PE or other acute chest/cardiac pathology. This does appear to be new onset afib for this patient, we will admit patient to the hospital for rate control, start on Eliquis, ECHO, and cardiology consult for rhythm control evaluation and continue workup for other causes. She does recall going to cardiology in the past for possible mitral valve prolapse and some palpitations, this was noted to be in 2018, her last ECHO reviewed from 2001 showed small right to left atrial shunting and mitral valve prolapse and trivial mitral regurgitation. Her last colonoscopy in 2010 was normal and she denies any history of blood in her stools or abnormal bleeding. As we are unsure of her onset of atrial fibrillation and possibility of rhythm control, after a long discussion with her and her son regarding anticoagulation options and risks, we elected to start the patient on Eliquis 5mg PO BID. Her CHADSVASC is 4 (if include thoracic aortic plaque seen on CTA chest) and HAS- BLED is 2. Allergies Allergy/AdvReac Type Severity Reaction Status Date / Time No Known Drug Allergies Allergy Mild Unknown Verified 04/23/21 14:54 tramadol AdvReac Mild Headache Verified 04/23/21 14:54 Home Medications Medication Instructions Recorded Confirmed Type multivitamin 1 tab PO DAILY 06/30/19 04/23/21 History Wheeled Walker #1 ea 01/04/21 04/23/21 Rx calcium carbonate [Calcium 500] 500 mg PO QPM 01/18/21 04/23/21 History sertraline 25 mg PO QPM 01/18/21 04/23/21 History carbidopa 25 mg-levodopa 100 mg 2 tab PO UD #210 tab 02/20/21 04/23/21 Rx tablet atorvastatin 20 mg tablet 20 mg PO QPM #90 tab 03/29/21 04/23/21 Rx Past Med/Surg History Medical History Hammer toe History of anxiety History of basal cell carcinoma History of depression History of transesophageal echocardiography (AYESHA) HLD (hyperlipidemia) Osteoarthritis Parkinson's disease Prediabetes A1C 6.0% Surgical History H/O oral surgery History of basal cell carcinoma (BCC) excision History of colonoscopy S/P breast biopsy S/P dilation and curettage S/P tonsillectomy S/P tubal ligation S/P wisdom tooth extraction Family History Mother Kidney disease Hypertension Stroke Brother Sigmoid colon injury Father Kidney disease Spinal stenosis Other Heart disease No family history of adverse response to anesthesia Osteoporosis Social History Smoking Status: Never smoker Second Hand Exposure: Yes (as a child); Hx Alcohol Use: No Hx Substance Use: No Preferred Language: Ivorian Communication Ability: Effective Visual Impairment: No Limitations Hearing Ability: Normal Chopper Feeder Required: No Beliefs That Will Affect Care: None marital status: Current Living Situation: Family Current Living Situation Comment: with son current occupational status: retired Feels Safe at Home: Yes Dental Care, Regularly: No Physical Activity Frequency: Does not Exercise Seatbelt Use: always Assistive Devices: Glasses and Walker Review of Systems Review of Systems: REVIEW OF SYSTEMS: Constitutional: No fever, sweats or chills Eyes: No diplopia, no worsening or blurred vision ENT: normal hearing, no trouble swallowing Respiratory: (+) dyspnea on exertion, No cough, sputum, dyspnea at rest Cardiovascular: (+) tightness/palpitations, No radiating chest pain Abdomen: No pain, nausea, vomiting, diarrhea or constipation Musculoskeletal: No joint pain, calf pain, swelling Neurologic: (+) tremor, use of walker following TKA, No weakness, numbness/tingling, Psychiatric: No anxiety or depression Skin: No rash or itch Physical Exam Physical Exam: PHYSICAL EXAM: General: awake, alert, no apparent distress Head: Normocephalic, atraumatic ENT: PERRL, EOMI, no pharyngeal exudate, mucous membranes moist Neuro: AAO x 3, speech clear and appropriate, strength intact bilaterally 5/5, sensation intact and equal all extremities and dermatomes, no pronator drift Chest: equal rise and fall of the chest, no accessory muscle use, no heaves or thrills, Clear to auscultation, on room air, Cardiac: irregular rate and rhythm, telemetry reviewed- irregular tachycardic, skin warm dry, cap refill <3 seconds, peripheral pulses +2 no JVD, no murmur, no edema GI: NABS x 4 quadrants, soft, nontender to palpation, no rebound, guarding or tenderness : Spontaneously voiding, no pain, no CVA tenderness, Extremities: Normal inspection, no peripheral edema or erythema, calfs nontender to palpation equal in size, scar to right knee from TKA well healed and edges approximated. Psych: Normal mood and affect Skin: no rash or erythema Results & Data Results & Data ([facility]) Vital Signs (Past 12 Hours) Vital Signs Temp Pulse Resp BP Pulse Ox 04/23/21 13:00 121 H 18 136/77 98 04/23/21 12:30 117 H 19 132/74 97 04/23/21 12:00 99 H 20 107/62 97 04/23/21 11:57 163 H 17 139/100 96 04/23/21 11:55 151 H 14 97 04/23/21 11:30 151 H 14 108/76 97 04/23/21 11:14 36.8 C 150 H 18 103/73 98 Laboratory Results Abnormal lab results 04/23/21 04/23/21 04/23/21 Range/Units 11:30 11:30 11:30 MCHC 31.6 L (32-36) g/dL MPV 10.7 H (7.4-10.4) fL Lymph # (Auto) 3.46 H (1.2-3.4) K/uL [place] # (Auto) 0.66 H (0.11-0.59) K/uL D-Dimer 2140 H* (0-500) ug/L FEU Chloride 108 H (98-107) mmol/L BUN 19 H (7-18) mg/dl BUN/Creatinine Ratio 23.6 H (10-20) Glucose 135 H (70-99) mg/dl Diagnostic Findings Chest CTA 04/23/21 12:13 CT ANGIOGRAM OF THE CHEST CLINICAL HISTORY: Atypical chest pain. Dyspnea. COMPARISON STUDY: Chest x-ray dated 01/30/2021. TECHNIQUE: Following the IV administration of 120 cc of Optiray 320, CT angiogram of the chest was performed from the upper abdomen to the thoracic inlet utilizing the pulmonary embolus protocol. Images are reviewed in the axial, sagittal, and coronal planes. 3-D MIPS images are created and assessed. IV contrast was administered without complication. A dose lowering technique was utilized adhering to the principles of ALARA. CT DOSE: 634.69 mGy.cm FINDINGS: Thyroid: Imaged portions of the thyroid gland are normal in size and attenuation. Thoracic aorta: There is mild atherosclerotic calcification of the thoracic aorta, which is normal in caliber and demonstrates standard 3-vessel arch anatomy. No dissection is seen. Pulmonary vasculature: The pulmonary trunk is normal in caliber. There are no filling defects identified in main, lobar, or segmental pulmonary branches to suggest pulmonary embolus. Heart: The heart is mildly enlarged and without pericardial effusion. There are scattered coronary artery calcifications. Lungs and pleural spaces: Evaluation of the lung parenchyma is degraded by motion artifact. There is no airspace consolidation or pleural effusion. Atelectasis is noted at the lung bases. The trachea and central airways are clear. A 4 mm left lower lobe pulmonary nodule is seen on image #66. There are scattered calcified granulomas. Mediastinum: There is no mediastinal lymphadenopathy. Litzy: Clear. Axillae: There is no axillary lymphadenopathy. Upper abdomen: Partially visualized upper abdominal viscera is within normal limits. Skeletal structures: The skeletal structures are osteopenic. No lytic or blastic bony lesions are seen. IMPRESSION: 1. There is no evidence of pulmonary embolus in the main, lobar, or segmental pulmonary arteries. 2. There is no airspace consolidation or pleural effusion. 3. Mild cardiomegaly. 4. There is a 4 mm left lower lobe pulmonary nodule. This can be followed as per the Fleischner criteria if clinically warranted. 5. Additional findings as above. Please refer to below summary of Fleischner criteria recommendations for follow- up of incidental CT nodules (Oscar Marcus, Guidelines for management of small pulmonary nodules detected on CT scans: A statement from the Fleischner Society, Radiology 237: [phone].) SOLID NODULES Solitary nodule size: <6 mm * low risk patients: no follow-up needed * high risk patients: optional CT at 12 months Solitary nodule size: 6-8 mm * low risk patients: follow-up at 6-12 months, then consider further follow-up at 18-24 months * high risk patients: initial follow-up CT at 6-12 months and then at 18-24 months if no change Solitary nodule size: >8 mm * either low or high risk patients - consider follow-up CT at 3 months, and/or CT-PET, and/or biopsy Multiple nodules size: <6 mm * low risk patients: no routine follow-up * high risk patients: optional CT at 12 months Multiple nodules size: 6-8 mm * low risk patients: follow-up at 3-6 months, then consider further follow-up at 18-24 months * high risk patients: follow-up at 3-6 months, then at 18-24 months if no change Multiple nodules size: >8 mm * low risk patients: follow-up at 3-6 months, then consider further follow-up at 18-24 months * high risk patients: follow-up at 3-6 months, then at 18-24 months if no change Note: newly detected indeterminate nodule in persons 35 years of age or older. * low risk patients: minimal or absent history of smoking and/or other known risk factors * high risk patients: history of smoking or of other known risk factors (e.g. first degree relative with lung cancer, or exposure to asbestos, radon, uranium) * if a nodule up to 8 mm is partly solid or is ground glass further follow-up is required after 24 months to exclude possible slow growing adenocarcinoma (MAE) SUBSOLID NODULES Solitary pure ground-glass nodule * nodule size <6 mm - no CT follow-up required * nodule size >=6 mm - follow-up CT at 6-12 months, then every 2 years until 5 years Solitary part-solid nodule * nodule size <6 mm - no CT follow-up required * nodule size >=6 mm - follow-up CT at 3-6 months. If unchanged, and solid component remains <6 mm, then annual follow-up for 5 years Multiple subsolid nodules * nodule size <6 mm - follow-up CT at 3-6 months, consider further follow-up at 2 and 4 years if stable * nodule size >=6 mm - follow-up CT at 3-6 months, subsequent management based on the most suspicious nodule(s) Electronically signed by: Sylvester Mills M.D. 04/23/2021 1:49 PM Medications Administered Diltiazem HCl 125 mg/ Dextrose 125 mls @ 10 mls/hr IV .[id number] RENE; Protocol Stop: 05/23/21 11:59 Last Titration: 04/23/21 14:21 Dose: 10 mg/hr, 10 mls/hr Documented by: [id number] Cosigned by: [id number] Admin: 04/23/21 12:13 Dose: 5 mg/hr, 5 mls/hr Documented by: [id number] Cosigned by: [id number] Discontinued Medications Apixaban (Apixaban 5 Mg Tablet) 5 mg PO NOW STA Stop: 04/23/21 15:21 Last Admin: 04/23/21 15:35 Dose: 5 mg Documented by: [id number] Aspirin (Aspirin Chew 324 Mg) 324 mg PO NOW STA Stop: 04/23/21 11:56 Last Admin: 04/23/21 12:14 Dose: 324 mg Documented by: [id number] Diltiazem HCl (Diltiazem Hcl 5 Mg/Ml 5 Ml Vial) 20 mg IV NOW STA Stop: 04/23/21 11:56 Last Admin: 04/23/21 12:02 Dose: 20 mg Documented by: [id number] Cosigned by: [id number] Diltiazem HCl (Diltiazem Hcl 5 Mg/Ml 5 Ml Vial) Confirm Administered Dose 25 mg IV .STK-MED ONE Stop: 04/23/21 11:57 Last Admin: 04/23/21 12:07 Dose: Not Given Documented by: [id number] Diltiazem HCl (Diltiazem Hcl 5 Mg/Ml 5 Ml Vial) 5 mg IV Q5M PRN PRN Reason: HR 110 or greater Last Admin: 04/23/21 15:35 Dose: 5 mg Documented by: [id number] Cosigned by: [id number] Admin: 04/23/21 15:25 Dose: 5 mg Documented by: [id number] Cosigned by: [id number] Ioversol (Optiray 320 100ml) 120 ml IV ONCE ONE Stop: 04/23/21 13:30 Last Admin: 04/23/21 13:30 Dose: 120 ml Documented by: [id number] Miscellaneous (Stat Iv Infusion Titration Per Protocol) 1 ea N/A NOW STA Stop: 04/23/21 11:57 Last Admin: 04/23/21 12:14 Dose: Not Given Documented by: [id number] ECG Additional Comments: Irregular HR 153, baseline artifact- QRS duration 64 ms QT/QTc 224/357 ms P-R-T axes * 1 158 Code Status & VTE Plan Code Status CODE: FULL VTE: SCD's, Eliquis PO Supervising Physician Co-Signing Physician Notes DOCUMENT MANAGEMENT SPECIALIST Supervision note: I have personally seen and examined the patient and discussed and verified the schafer points of the history and physical along with the plan with REVA Marquez with the following exceptions and/or additions: This patient is a 71-year-old female who presents to the ER with feelings of dizziness and lightheadedness, and chest pressure that started the day prior and was found to have rapid atrial fibrillation ER with rates in the 140s to 160s. Her rate was slowed down with IV diltiazem and when I saw her she was no longer having any chest pressure or dizziness. She has never had atrial fibrillation before. She denies any shortness of breath. She seemed anxious at the time of admission. History and ROS reviewed Vitals reviewed Gen: AAOx3, NAD, appears anxious, with resting tremor especially in the right upper extremity HEENT: Anicteric sclerae, EOMI CV: Irregularly irregular, rapid rate in the 120s no mgr nl S1S2 Pulm: CTAB no wcr Abd: +BS Ext: No edema, no calf tenderness Skin: No rashes, warm/dry Neuro: Full strength throughout Laboratory values reviewed Imaging reviewed ECG reviewed 71-year-old female here with new onset rapid atrial fibrillation Start Eliquis, rate control diltiazem convert to p.o. AV sheri alon tomorrow- metoprolol versus diltiazem depending on what ejection fraction is Check echocardiogram Appreciate cardiology consultation Monitor on telemetry Consult PT/OT given recent right knee surgery PG Care Time/CCT Total # of Minutes Spent Total Time Spent with Patient: Total time spent is greater than 50% in coordination of care (as documented) at patient's floor/unit and/or counseling patient: Coding Level of Care Code 30997 Initial Inpt Care Lvl 3 Diagnoses Afib I48.91 Atrial fibrillation type: unspecified Hypertension I10 Hypertension type: essential hypertension Hyperlipidemia E78.5 Hyperlipidemia type: unspecified Parkinsons disease G20 Arthritis M19.90 Elevated random blood glucose level R73.09 Anticoagulation adequate Z79.01 Lung nodule R91.1 (1) Afib Atrial fibrillation type: unspecified Qualified Code(s): I48.91 - Unspecified atrial fibrillation (2) Hyperlipidemia Hyperlipidemia type: unspecified Qualified Code(s): E78.5 - Hyperlipidemia, unspecified (3) Hypertension Hypertension type: essential hypertension Qualified Code(s): I10 - Essential (primary) hypertension
--- NOTE | 2021-04-23 16:13 | Emergency Department Note ---
History of Present Illness General Chief Complaint: Cardiac Assessment Stated Complaint: CHEST DISCOMFORT,REF BY DOC Time Seen by Provider: 04/23/21 11:33 History of Present Illness Provider Complaint: chest pain Onset (ago): day(s) 2 Duration: progressively worsening Onset: during rest Pain Location: substernal Pain Radiation: none Maximum Pain Intensity: 3 Current Pain Intensity: 3 Quality: + tightness Relieved By: + nothing Exacerbated By: + nothing Context: no recent illness, no recent surgery, no recent immobilization, no recent travel, no trauma/injury and no history of DVT/PE Associated symptoms: + dyspnea; no nausea, no vomiting, no diaphoresis, no sense of impending doom, no syncope, no palpitations, no fever, no cough and no leg swelling Home Medications Medication Instructions Recorded Confirmed Type multivitamin 1 tab PO DAILY 06/30/19 04/23/21 History Wheeled Walker #1 ea 01/04/21 04/23/21 Rx calcium carbonate [Calcium 500] 500 mg PO QPM 01/18/21 04/23/21 History sertraline 25 mg PO QPM 01/18/21 04/23/21 History carbidopa 25 mg-levodopa 100 mg 2 tab PO UD #210 tab 02/20/21 04/23/21 Rx tablet atorvastatin 20 mg tablet 20 mg PO QPM #90 tab 03/29/21 04/23/21 Rx Allergies Allergy/AdvReac Type Severity Reaction Status Date / Time No Known Drug Allergies Allergy Mild Unknown Verified 04/23/21 14:54 tramadol AdvReac Mild Headache Verified 04/23/21 14:54 Past Med/Surg History Medical History Hammer toe History of anxiety History of basal cell carcinoma History of depression History of transesophageal echocardiography (AYESHA) HLD (hyperlipidemia) Osteoarthritis Parkinson's disease Prediabetes A1C 6.0% Surgical History H/O oral surgery History of basal cell carcinoma (BCC) excision History of colonoscopy S/P breast biopsy S/P dilation and curettage S/P tonsillectomy S/P tubal ligation S/P wisdom tooth extraction Family History Mother Kidney disease Hypertension Stroke Brother Sigmoid colon injury Father Kidney disease Spinal stenosis Other Heart disease No family history of adverse response to anesthesia Osteoporosis Social History Smoking Status: Never smoker Second Hand Exposure: Yes (as a child); Hx Alcohol Use: No Hx Substance Use: No Preferred Language: Danish Communication Ability: Effective Visual Impairment: No Limitations Hearing Ability: Normal 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 Beliefs That Will Affect Care: None marital status: Current Living Situation: Alone Current Living Situation Comment: son lives with pt current occupational status: retired Feels Safe at Home: Yes Dental Care, Regularly: No Physical Activity Frequency: Does not Exercise Seatbelt Use: always Assistive Devices: Walker Review of Systems A total of 10 systems reviewed and were otherwise negative Physical Exam Vital Signs Vital Signs - 24 hr 04/23/21 11:14 04/23/21 11:30 04/23/21 11:34 Temperature 36.8 C Temperature Source Temporal Artery Scan Pulse Rate 150 H 151 H Pulse Rate from SpO2 Sensor 142 H Pulse Rhythm Respiratory Rate 18 14 Respiratory Effort / Characteristics Non-Labored Spontaneous Non-Labored Spontaneous Respiratory Depth Normal Normal Blood Pressure 103/73 108/76 Blood Pressure Mean 83 86 Pulse Oximetry 98 97 Oxygen Delivery Method Room Air Room Air Sepsis Recent Fever Within 48 Hours No Sepsis New/Unexplained Change in Mental Status No Sepsis Action Taken by Nursing No Action Required 04/23/21 11:55 04/23/21 11:57 04/23/21 12:00 Temperature Temperature Source Pulse Rate 151 H 163 H 99 H Pulse Rate from SpO2 Sensor 153 H 100 H Pulse Rhythm Irregular Respiratory Rate 14 17 20 Respiratory Effort / Characteristics Respiratory Depth Blood Pressure 139/100 107/62 Blood Pressure Mean 113 77 Pulse Oximetry 97 96 97 Oxygen Delivery Method Room Air Sepsis Recent Fever Within 48 Hours Sepsis New/Unexplained Change in Mental Status Sepsis Action Taken by Nursing 04/23/21 12:30 04/23/21 13:00 04/23/21 14:00 Temperature Temperature Source Pulse Rate 117 H 121 H 126 H Pulse Rate from SpO2 Sensor 117 H 122 H 125 H Pulse Rhythm Respiratory Rate 19 18 14 Respiratory Effort / Characteristics Respiratory Depth Blood Pressure 132/74 136/77 157/77 H Blood Pressure Mean 93 96 103 Pulse Oximetry 97 98 98 Oxygen Delivery Method Sepsis Recent Fever Within 48 Hours Sepsis New/Unexplained Change in Mental Status Sepsis Action Taken by Nursing 04/23/21 14:31 04/23/21 15:00 04/23/21 15:30 Temperature Temperature Source Pulse Rate 142 H 133 H 137 H Pulse Rate from SpO2 Sensor 125 H 121 H 116 H Pulse Rhythm Respiratory Rate 15 17 13 Respiratory Effort / Characteristics Respiratory Depth Blood Pressure 156/82 H 155/102 H 118/94 Blood Pressure Mean 106 119 102 Pulse Oximetry 98 99 99 Oxygen Delivery Method Sepsis Recent Fever Within 48 Hours Sepsis New/Unexplained Change in Mental Status Sepsis Action Taken by Nursing 04/23/21 15:56 Temperature Temperature Source Pulse Rate 120 H Pulse Rate from SpO2 Sensor Pulse Rhythm Respiratory Rate 13 Respiratory Effort / Characteristics Respiratory Depth Blood Pressure 118/94 Blood Pressure Mean Pulse Oximetry 99 Oxygen Delivery Method Room Air Sepsis Recent Fever Within 48 Hours Sepsis New/Unexplained Change in Mental Status Sepsis Action Taken by Nursing Physical Exam GENERAL: She is oriented to person, place, and time. She appears well-developed and well-nourished. She does not appear distressed. HENT: Exam performed. -Head: Normocephalic and atraumatic. -Right Ear: External ear normal. No mastoid tenderness. -Left Ear: External ear normal. No mastoid tenderness. -Mouth/Throat: The oropharynx is clear and moist. No trismus in the jaw. No dental abscesses or uvula swelling. No oropharyngeal exudate or tonsillar abscesses. EYES: Conjunctivae and EOM are normal. Pupils are equal, round, and reactive to light. Right eye exhibits no discharge. Left eye exhibits no discharge. No scleral icterus. NECK: Normal range of motion. Neck supple. No JVD present. No spinous process tenderness present. No carotid bruit present. No rigidity. No tracheal deviation and normal range of motion present. No Brudzinski's sign and no Kernig's sign noted. CV: tachcardic rate, irregular rhythm, normal heart sounds and intact distal pulses. There is no peripheral edema. Palpable radial pulses bue. PULM/CHEST: Effort normal and breath sounds normal. No respiratory distress. No stridor. She has no wheezes. She has no rales. -Chest Wall: She exhibits no tenderness. ABD: The abdomen is soft. Bowel sounds are normal. She has no distension. No mass is present. There is no tenderness. There is no rebound, no guarding, no Hdz's sign and no tenderness at McBurney's point. Rovsig negative MUSC/SKEL: Normal range of motion. There is no peripheral edema, tenderness or deformity. LYMPH: No cervical adenopathy. NEURO: She is alert and oriented to person, place, and time. She has normal st rength. No cranial nerve deficit or sensory deficit. Coordination and gait normal. GCS eye subscore is 4. GCS verbal subscore is 5. GCS motor subscore is 6. Cerebellar tests wnl. Tremor at baseline from the patient's Parkinson's. SKIN: Skin is warm and dry. She is not diaphoretic. PSYCH: She has a normal mood and affect. Behavior is normal. Judgment and thought content normal. Course Course 1133: The patient was evaluated in room B11. A complete history and physical exam was performed Cardiac monitoring: An order was placed for continuous cardiac monitoring. The monitor shows a rate of 140-160 with atrial fibrilation rhythm Patient was found to be in atrial fibrillation with a rate between 140 and 160. Large-bore IV access was obtained and Cardizem 20 mg IV push bolus was administered which improved the patient's ventricular rate. Patient remained in atrial fibrillation was started on cardizem drip. 1355: Vital signs stable on Cardizem drip. D-dimer was elevated troponin negative. CTA of the chest negative for PE. Patient continues to tolerate Cardizem drip well. CHADS2 score 1. Aspirin given to the patient. Patient be admitted to the [facility] Hospitalist team Dr. Gresham notified. Administered Medications Diltiazem HCl 125 mg/ Dextrose 125 mls @ 10 mls/hr IV .[id number] COUNTS INCLUDE 234 BEDS AT THE [facility]; Protocol Stop: 05/23/21 11:59 Last Titration: 04/23/21 14:21 Dose: 10 mg/hr, 10 mls/hr Documented by: [id number] Cosigned by: [id number] Admin: 04/23/21 12:13 Dose: 5 mg/hr, 5 mls/hr Documented by: [id number] Cosigned by: [id number] Discontinued Medications Apixaban (Apixaban 5 Mg Tablet) 5 mg PO NOW STA Stop: 04/23/21 15:21 Last Admin: 04/23/21 15:35 Dose: 5 mg Documented by: [id number] Aspirin (Aspirin Chew 324 Mg) 324 mg PO NOW STA Stop: 04/23/21 11:56 Last Admin: 04/23/21 12:14 Dose: 324 mg Documented by: [id number] Diltiazem HCl (Diltiazem Hcl 5 Mg/Ml 5 Ml Vial) 20 mg IV NOW STA Stop: 04/23/21 11:56 Last Admin: 04/23/21 12:02 Dose: 20 mg Documented by: [id number] Cosigned by: [id number] Diltiazem HCl (Diltiazem Hcl 5 Mg/Ml 5 Ml Vial) Confirm Administered Dose 25 mg IV .STK-MED ONE Stop: 04/23/21 11:57 Last Admin: 04/23/21 12:07 Dose: Not Given Documented by: [id number] Diltiazem HCl (Diltiazem Hcl 5 Mg/Ml 5 Ml Vial) 5 mg IV Q5M PRN PRN Reason: HR 110 or greater Last Admin: 04/23/21 15:35 Dose: 5 mg Documented by: [id number] Cosigned by: [id number] Admin: 04/23/21 15:25 Dose: 5 mg Documented by: [id number] Cosigned by: [id number] Ioversol (Optiray 320 100ml) 120 ml IV ONCE ONE Stop: 04/23/21 13:30 Last Admin: 04/23/21 13:30 Dose: 120 ml Documented by: [id number] Miscellaneous (Stat Iv Infusion Titration Per Protocol) 1 ea N/A NOW STA Stop: 04/23/21 11:57 Last Admin: 04/23/21 12:14 Dose: Not Given Documented by: [id number] Medical Decision Making Laboratory Data Result diagrams: 04/23/21 11:30 04/23/21 11:30 Labs: Lab Results 04/23/21 04/23/21 04/23/21 Range/Units 11:30 11:30 11:30 WBC 9.60 (4.8-10.8) K/uL RBC 4.59 (4.2-5.4) M/uL Hgb 13.3 (12.0-16.0) g/dL Hct 42.1 (37-47) % MCV 91.7 (80-100) fL MCH 29.0 (25-34) pg MCHC 31.6 L (32-36) g/dL RDW Std Deviation 46.0 (36.4-46.3) fL RDW Coeff of Curtis 13.7 (11.5-14.5) % Plt Count 319 (130-400) K/uL MPV 10.7 H (7.4-10.4) fL Immature Gran % (Auto) 0.2 % Neut % (Auto) 54.6 % Lymph % (Auto) 36.0 % Mccracken % (Auto) 6.9 % Eos % (Auto) 1.6 % Baso % (Auto) 0.7 % Neut # (Auto) 5.24 (1.4-6.5) K/uL Lymph # (Auto) 3.46 H (1.2-3.4) K/uL Mccracken # (Auto) 0.66 H (0.11-0.59) K/uL Eos # (Auto) 0.15 (0-0.5) K/uL Baso # (Auto) 0.07 (0-0.2) K/uL Immature Gran # (Auto) 0.02 (0.00-0.02) K/uL PT 10.2 (9.0-12.0) Seconds INR 1.0 (0.9-1.1) APTT 21.7 (21.0-31.0) Seconds PTT Ratio 0.8 D-Dimer 2140 H* (0-500) ug/L FEU Sodium 140 (136-145) mmol/L Potassium 3.7 (3.5-5.1) mmol/L Chloride 108 H (98-107) mmol/L Carbon Dioxide 25 (21-32) mmol/L Anion Gap 7.0 (3-11) BUN 19 H (7-18) mg/dl Creatinine 0.82 (0.6-1.2) mg/dl Est Cr Clr Drug Dosing 73.1 ml/min Est GFR ( Amer) 84.0 ml/min Est GFR (Non-Af Amer) 72.5 ml/min BUN/Creatinine Ratio 23.6 H (10-20) Glucose 135 H (70-99) mg/dl Calcium 9.0 (8.5-10.1) mg/dl Magnesium 2.3 (1.8-2.4) mg/dl Troponin I < 0.015 (0-0.045) ng/ml Lipase 169 (73-393) U/L COVID-19 Eval Order SARS-CoV-2 (PCR) (Negative) 04/23/21 04/23/21 Range/Units 12:15 12:15 WBC (4.8-10.8) K/uL RBC (4.2-5.4) M/uL Hgb (12.0-16.0) g/dL Hct (37-47) % MCV (80-100) fL MCH (25-34) pg MCHC (32-36) g/dL RDW Std Deviation (36.4-46.3) fL RDW Coeff of Curtis (11.5-14.5) % Plt Count (130-400) K/uL MPV (7.4-10.4) fL Immature Gran % (Auto) % Neut % (Auto) % Lymph % (Auto) % Mccracken % (Auto) % Eos % (Auto) % Baso % (Auto) % Neut # (Auto) (1.4-6.5) K/uL Lymph # (Auto) (1.2-3.4) K/uL Mccracken # (Auto) (0.11-0.59) K/uL Eos # (Auto) (0-0.5) K/uL Baso # (Auto) (0-0.2) K/uL Immature Gran # (Auto) (0.00-0.02) K/uL PT (9.0-12.0) Seconds INR (0.9-1.1) APTT (21.0-31.0) Seconds PTT Ratio D-Dimer (0-500) ug/L FEU Sodium (136-145) mmol/L Potassium (3.5-5.1) mmol/L Chloride (98-107) mmol/L Carbon Dioxide (21-32) mmol/L Anion Gap (3-11) BUN (7-18) mg/dl Creatinine (0.6-1.2) mg/dl Est Cr Clr Drug Dosing ml/min Est GFR ( Amer) ml/min Est GFR (Non-Af Amer) ml/min BUN/Creatinine Ratio (10-20) Glucose (70-99) mg/dl Calcium (8.5-10.1) mg/dl Magnesium (1.8-2.4) mg/dl Troponin I (0-0.045) ng/ml Lipase (73-393) U/L COVID-19 Eval Order Covid19 at [facility] SARS-CoV-2 (PCR) NEGATIVE (Negative) Imaging Data CT scan - chest: Radiologist's impression: Chest CTA 04/23/21 12:13 CT ANGIOGRAM OF THE CHEST CLINICAL HISTORY: Atypical chest pain. Dyspnea. COMPARISON STUDY: Chest x-ray dated 01/30/2021. TECHNIQUE: Following the IV administration of 120 cc of Optiray 320, CT angiogram of the chest was performed from the upper abdomen to the thoracic inlet utilizing the pulmonary embolus protocol. Images are reviewed in the axial, sagittal, and coronal planes. 3-D MIPS images are created and assessed. IV contrast was administered without complication. A dose lowering technique was utilized adhering to the principles of ALARA. CT DOSE: 634.69 mGy.cm FINDINGS: Thyroid: Imaged portions of the thyroid gland are normal in size and attenuation. Thoracic aorta: There is mild atherosclerotic calcification of the thoracic aorta, which is normal in caliber and demonstrates standard 3-vessel arch anatomy. No dissection is seen. Pulmonary vasculature: The pulmonary trunk is normal in caliber. There are no filling defects identified in main, lobar, or segmental pulmonary branches to suggest pulmonary embolus. Heart: The heart is mildly enlarged and without pericardial effusion. There are scattered coronary artery calcifications. Lungs and pleural spaces: Evaluation of the lung parenchyma is degraded by motion artifact. There is no airspace consolidation or pleural effusion. Atel ectasis is noted at the lung bases. The trachea and central airways are clear. A 4 mm left lower lobe pulmonary nodule is seen on image #66. There are scattered calcified granulomas. Mediastinum: There is no mediastinal lymphadenopathy. Litzy: Clear. Axillae: There is no axillary lymphadenopathy. Upper abdomen: Partially visualized upper abdominal viscera is within normal limits. Skeletal structures: The skeletal structures are osteopenic. No lytic or blastic bony lesions are seen. IMPRESSION: 1. There is no evidence of pulmonary embolus in the main, lobar, or segmental pulmonary arteries. 2. There is no airspace consolidation or pleural effusion. 3. Mild cardiomegaly. 4. There is a 4 mm left lower lobe pulmonary nodule. This can be followed as per the Fleischner criteria if clinically warranted. 5. Additional findings as above. Please refer to below summary of Fleischner criteria recommendations for follow- up of incidental CT nodules (H MacMahon, Guidelines for management of small pulmonary nodules detected on CT scans: A statement from the Fleischner Society, Radiology 237: [phone].) SOLID NODULES Solitary nodule size: <6 mm * low risk patients: no follow-up needed * high risk patients: optional CT at 12 months Solitary nodule size: 6-8 mm * low risk patients: follow-up at 6-12 months, then consider further follow-up at 18-24 months * high risk patients: initial follow-up CT at 6-12 months and then at 18-24 months if no change Solitary nodule size: >8 mm * either low or high risk patients - consider follow-up CT at 3 months, and/or CT-PET, and/or biopsy Multiple nodules size: <6 mm * low risk patients: no routine follow-up * high risk patients: optional CT at 12 months Multiple nodules size: 6-8 mm * low risk patients: follow-up at 3-6 months, then consider further follow-up at 18-24 months * high risk patients: follow-up at 3-6 months, then at 18-24 months if no change Multiple nodules size: >8 mm * low risk patients: follow-up at 3-6 months, then consider further follow-up at 18-24 months * high risk patients: follow-up at 3-6 months, then at 18-24 months if no change Note: newly detected indeterminate nodule in persons 35 years of age or older. * low risk patients: minimal or absent history of smoking and/or other known risk factors * high risk patients: history of smoking or of other known risk factors (e.g. first degree relative with lung cancer, or exposure to asbestos, radon, uranium) * if a nodule up to 8 mm is partly solid or is ground glass further follow-up is required after 24 months to exclude possible slow growing adenocarcinoma (MAE) SUBSOLID NODULES Solitary pure ground-glass nodule * nodule size <6 mm - no CT follow-up required * nodule size >=6 mm - follow-up CT at 6-12 months, then every 2 years until 5 years Solitary part-solid nodule * nodule size <6 mm - no CT follow-up required * nodule size >=6 mm - follow-up CT at 3-6 months. If unchanged, and solid component remains <6 mm, then annual follow-up for 5 years Multiple subsolid nodules * nodule size <6 mm - follow-up CT at 3-6 months, consider further follow-up at 2 and 4 years if stable * nodule size >=6 mm - follow-up CT at 3-6 months, subsequent management based on the most suspicious nodule(s) ACT 112: Negative or not required by law. Electronically signed by: Sylvester Mills M.D. 04/23/2021 1:49 PM ECG Data Additional Comments: EKG #1 at 1127 done in triage: Atrial fibrillation with a rate of 153. QRS [address] elevation or ST depression EKG #2 at 1156: Atrial fibrillation with rate of 144. QRS [address] elevation or ST depression. EKG #3 at 1205 status post Cardizem 20 mg IV bolus: Atrial fibrillation with a rate of 103. QRS [address] elevation or ST depression. MDM Narrative 1133: The patient was evaluated in room B11. A complete history and physical exam was performed Cardiac monitoring: An order was placed for continuous cardiac monitoring. The monitor shows a rate of 140-160 with atrial fibrilation rhythm Patient was found to be in atrial fibrillation with a rate between 140 and 160. Large-bore IV access was obtained and Cardizem 20 mg IV push bolus was administered which improved the patient's ventricular rate. Patient remained in atrial fibrillation was started on cardizem drip. 1355: Vital signs stable on Cardizem drip. D-dimer was elevated troponin negative. CTA of the chest negative for PE. Patient continues to tolerate Cardizem drip well. CHADS2 score 1. Aspirin given to the patient. Patient be admitted to the [facility] hospitalist team Dr. Gresham notified. Impression & Plan Atrial fibrillation with RVR Discharge Plan Visit Data Chief Complaint: Cardiac Assessment Stated Complaint: CHEST DISCOMFORT,REF BY DOC ED Provider: Feliciano Gonzalez Discharge Problem: Atrial fibrillation with RVR Patient Disposition: Admitted As Inpatient Discharge Instructions Interventions: ED Discharge Assessment Last Done: 04/23/21 15:56 Forms Stand Alone Forms: My [facility] [employer] Prescriptions Prescriptions: No Action (DME) Wheeled Walker Misc See Rx Instructions .MEDSUPPLY Qty: 1 RF: 0 atorvastatin 20 mg tablet 20 mg PO QPM Qty: 90 RF: 3 multivitamin [Daily Multi-Vitamin] tablet 1 tab PO DAILY RF: 0 carbidopa-levodopa 25-100 mg tablet 2 tab PO UD Qty: 210 RF: 5 calcium carbonate [Calcium 500] 500 mg calcium (1,250 mg) tablet 500 mg PO QPM RF: 0 sertraline 25 mg tablet 25 mg PO QPM RF: 0 Referrals Referrals: Vandana Boucher MD [Primary Care Provider] -
[2021-04-23] MEDS ORDERED: ONDANSETRON INJ 2 MG/ML 2 ML VIAL IV PRN (16:50)
[2021-04-23] MEDS ORDERED: POLYETHYLENE (MIRALAX) 17 GM PACK PO PRN (16:50)
[2021-04-23] MEDS ORDERED: dilTIAZem HCl 5 MG/ML 5 ML VIAL IV PRN (16:50)
[2021-04-23] MEDS ORDERED: ACETAMINOPHEN 325 MG TAB PO PRN (16:50)
[2021-04-23] MEDS ORDERED: POTASSIUM CHLORIDE CRTAB 20 MEQ TABCR PO SCH (17:15)
[2021-04-23] MEDS: CARBIDOPA/LEVODOPA 25/100MG TAB PO SCH ×2 (18:55→20:59)
[2021-04-23] MEDS: SERTRALINE HCL 50 MG TABLET PO SCH (20:57)
[2021-04-23] MEDS: CALCIUM 600MG + VIT D 400 IU TAB PO SCH (20:58)
[2021-04-23] MEDS: ATORVASTATIN 20 MG TAB PO SCH (20:58)
[2021-04-23] MEDS: APIXABAN 5 MG TABLET PO SCH (20:58)
[2021-04-23] MEDS ORDERED: MELATONIN 3 MG TAB PO ONE (22:51)
[2021-04-23] MEDS: MELATONIN 3 MG TAB PO PRN (22:53)
[2021-04-23] MEDS ORDERED: LORazepam 0.5 MG TAB PO STA (23:25)
[2021-04-24] MEDS ORDERED: METOPROLOL TARTRATE 25 MG TAB PO STA (03:56)
[2021-04-24] MEDS: dilTIAZem HCL 125 MG in DEXTROSE 5% 100 ML IV SCH ×2 (07:52→12:42)
[2021-04-24 07:56] LABS: Basophils # (auto) 0.07 K/uL (0-0.2); Basophils % (auto) 0.6 %; Eosinophils # (auto) 0.13 K/uL (0-0.5); Eosinophils % (auto) 1.1 %; Hematocrit (blood only) 38.2 % (37-47); Hemoglobin 11.9 g/dL (12.0-16.0); Immature Granulocytes # (auto) 0.03 K/uL (0.00-0.02); Immature Granulocytes % (auto) 0.3 %; Lymphocytes # (auto) 3.16 K/uL (1.2-3.4); Mean Corpuscular Hemoglobin 28.8 pg (25-34); Mean Corpuscular Hgb Conc 31.2 g/dL (32-36); Mean Corpuscular Volume 92.5 fL (80-100); Mean Platelet Volume 10.2 fL (7.4-10.4); Monocytes # (auto) 0.71 K/uL (0.11-0.59); Monocytes % (auto) 6.1 %; Neutrophils # (auto) 7.62 K/uL (1.4-6.5); Neutrophils % (auto) 64.9 %; Platelet Count 281 K/uL (130-400); RDW Standard Deviation 47.9 fL (36.4-46.3); Red Blood Count 4.13 M/uL (4.2-5.4); White Blood Count 11.72 K/uL (4.8-10.8)
[2021-04-24] MEDS: CARBIDOPA/LEVODOPA 25/100MG TAB PO SCH ×4 (07:57→21:03)
[2021-04-24] MEDS: MULTIVITAMIN TAB PO SCH (07:57)
[2021-04-24] MEDS: APIXABAN 5 MG TABLET PO SCH ×2 (07:57→21:03)
[2021-04-24 08:27] LABS: BUN Creatinine Ratio 25.3 (10-20); Calcium 9.3 mg/dl (8.5-10.1); Est GFR (African American) 89.3 ml/min; Magnesium 2.1 mg/dl (1.8-2.4); Potassium 4.7 mmol/L (3.5-5.1)
[2021-04-24] MEDS: lisinopril 10 MG TAB PO SCH (08:43)
--- NOTE | 2021-04-24 09:29 | Hospitalist Progress Note ---
Date of Service April 24, 2021 Assessment & Plan (1) Atrial fibrillation with RVR: Mrs. Steiner is a 71 year old female with a history of Hypertension, Parkinson's Disease, Hyperlipidemia, Elevated Glucose, Depression, and Anxiety who apparently went into New-Onset Rapid Atrial Fibrillation on Friday04/22/21. Her symptoms included a vague chest discomfort, exertional dyspnea, decreased exertional tolerance. She presented to the ER 04/23/21 where EKG confirmed Rapid A-Fib. Electrolyte disturbances and thyroid issues were ruled out. D-Dimer was elevated but CTA of Chest showed no evidence of pulmonary embolism. Patient's troponin I level was and remains undetectable. Echocardiogram 04/24/21 shows normal biventricular systolic function, mild concentric LVH, mild MR, mild TR, mild left atrial dilatation, and her LVEF is 55% to 60%. Patient does NOT have a mitral valve prolapse. Patient started on Eliquis and IV Diltiazem drip to control her HR. Her HR remains in 100 to 130 bpm range, but patient is less symptomatic. Patient has not had any signs or symptoms suggestive of stroke or mini stroke. 1. Continue Eliquis 5 mg b.i.d., her [id number] is 4 and therefore cpht anticoagulation is recommended. 2. Begin Metoprolol Succinate ER 50 mg daily, first dose now. 3. Wean Diltiazem drip as tolerated. 4. Goal is rate control/anticoagulation -- if HR is controlled and patient minimally symptomatic may be able to send home later today. 5. Patient will follow-up with Dr. Jang or myself approximately 3 weeks after discharge to reassess rate, rhythm, and symptoms. If still in A-Fib at that point consider elective electrical cardioversion after 3.5 to 4 weeks of an ticoagulation. (2) Hypertension: 1. Continue Lisinopril 10 mg daily. 2. Begin Metoprolol Succinate ER 50 mg for both rate control and to treat hypertension. 3. Wean off of Diltiazem drip. (3) Hyperlipidemia: Cholesterol panel as noted below. -- Continue Atorvastatin 20 mg daily. (4) Parkinsons disease: -- Continue Sinemet 25-100 mg -- take 2 tablets t.i.d. and 1 tablet at bedtime. Admission and Anticipated Discharge Date Admission Date: April 23, 2021 Supervising Physician Co-Signing Physician Notes Attending Attestation- Chart reviewed in detail, care plan d/w MICHAEL Davis. I agree w/ the schafer components of his documentation. Echo results noted. Rate control strategy for rapid a.fib. Cont eliquis for anticoagulation given high CHADsVASc score. Isiah Mosquera MD Subjective Mrs. Steiner is a 71 year old female with a history of Hypertension, Parkinson's Disease, Hyperlipidemia, Elevated Glucose, Depression, and Anxiety who apparently went into New-Onset Rapid Atrial Fibrillation on Friday04/22/21. Her symptoms included a vague chest discomfort, exertional dyspnea, decreased exertional tolerance, and some sense of palpitations. She was brought into [facility] ER by a family member. EKG confirmed rapid atrial fibrillation. Patient was started on an IV Diltiazem drip and then admitted to the Telemetry Unit. She remains in A-Fib with ventricular response rates ranging between 100-140 bpm overnight. At the present time, patient denies any chest pain, heaviness, tightness, or pressure. She denies any neck, jaw, back, or arm pain. She denies any nausea, vomiting, or diaphoresis. She is not dyspneic. She denies any orthopnea or PND. She denies any syncope or near-syncope. Patient states that she is anxious to go home because she did not sleep for more than 20 minutes overnight. Fortunately, the patient has not had any symptoms stroke or mini stroke. She specifically denies any visual disturbance, blind spots, black spots, loss of visual puri, or amaurosis fugax. She denies any weakness, numbness, tingling, or paralysis of any extremities. She has not had any slurred speech. She denies any confusion. Patient was told at one time that she had mitral valve prolapse -- however, that does not appear to be the case on her Echocardiogram 04/24/21. Review of Systems Review of Systems: All systems reviewed & are unremarkable except as noted in Subjective Physical Exam Physical Exam: GENERAL: Patient in no acute distress. HEENT: Head is atraumatic, normocephalic. EOM's intact. Facies symmetric. No perioral cyanosis. NECK: No JVD. JVP is at the level of the clavicle sitting upright. Carotid upstrokes are + 2 bilaterally. No bruits are noted. CHEST/LUNGS: Clear to auscultation throughout all lung puri. No wheezes, rales, or crackles. CVS: S1 and S2 are irregularly irregular without obvious murmurs, gallops, or rubs. PMI is nonpalpable. No lifts, heaves, or thrills. No abdominal aortic or renal bruits. ABDOMINAL EXAM: Bowel sounds are present. No masses, organomegaly, or tenderness. EXTREMITIES: No clubbing or cyanosis. No edema. Intact posterior tibial and radial pulses bilaterally. NEUROLOGIC EXAM: Patient is awake, alert, and oriented. Pleasant and cooperative. Answers questions appropriately. Speech is clear. Resting tremor noted of RUE. Gait pattern was not assessed. ECHOCARDIOGRAM 04/24/21: -- Normal LV systolic function. -- LVEF 55% to 60%, no regional wall motion abnormalities. -- Mild concentric LVH. -- Mild left atrial dilation, borderline right atrial enlargement. -- Normal RV size and systolic function. -- Mild mitral regurgitation. -- Mild Tricuspid regurgitation. -- Normal IVC size and collapsibility. Results & Data Results & Data ([facility]) Vital Signs (Past 12 Hours) Vital Signs Temp Pulse Pulse Resp BP Pulse Ox 04/24/21 07:42 36.6 C 101 H 20 117/65 96 04/24/21 04:06 125 H 144/75 H 04/24/21 03:45 36.9 C 117 H 18 106/67 95 04/24/21 01:52 126/76 04/24/21 01:05 107 H 103/65 04/24/21 00:45 132 H 110/68 04/23/21 23:42 36.5 C 115 H 18 102/68 94 04/23/21 22:20 114 H Laboratory Results Laboratory Results - last 24 hr 04/23/21 04/23/21 04/24/21 18:03 18:03 07:44 WBC 11.72 H RBC 4.13 L Hgb 11.9 L Hct 38.2 MCV 92.5 MCH 28.8 MCHC 31.2 L RDW Std Deviation 47.9 H RDW Coeff of Curtis 14.0 Plt Count 281 MPV 10.2 Immature Gran % (Auto) 0.3 Neut % (Auto) 64.9 Lymph % (Auto) 27.0 [place] % (Auto) 6.1 Eos % (Auto) 1.1 Baso % (Auto) 0.6 Neut # (Auto) 7.62 H Lymph # (Auto) 3.16 [place] # (Auto) 0.71 H Eos # (Auto) 0.13 Baso # (Auto) 0.07 Immature Gran # (Auto) 0.03 H Sodium Potassium Chloride Carbon Dioxide Anion Gap BUN Creatinine Est Cr Clr Drug Dosing Est GFR ( Amer) Est GFR (Non-Af Amer) BUN/Creatinine Ratio Glucose Calcium Magnesium Triglycerides Cholesterol LDL Cholesterol, Calc VLDL Cholesterol, Calc HDL Cholesterol Cholesterol/HDL Ratio TSH 1.870 Random Cortisol 10.52 Hepatitis C Ab Screen 04/24/21 04/24/21 07:44 07:44 WBC RBC Hgb Hct MCV MCH MCHC RDW Std Deviation RDW Coeff of Curtis Plt Count MPV Immature Gran % (Auto) Neut % (Auto) Lymph % (Auto) [place] % (Auto) Eos % (Auto) Baso % (Auto) Neut # (Auto) Lymph # (Auto) [place] # (Auto) Eos # (Auto) Baso # (Auto) Immature Gran # (Auto) Sodium 139 Potassium 4.7 D Chloride 109 H Carbon Dioxide 23 Anion Gap 7.0 BUN 20 H Creatinine 0.78 Est Cr Clr Drug Dosing 76.0 Est GFR ( Amer) 89.3 Est GFR (Non-Af Amer) 77.0 BUN/Creatinine Ratio 25.3 H Glucose 130 H Calcium 9.3 Magnesium 2.1 Triglycerides 183 H Cholesterol 153 LDL Cholesterol, Calc 75 VLDL Cholesterol, Calc 37 HDL Cholesterol 41 Cholesterol/HDL Ratio 4 TSH Random Cortisol Hepatitis C Ab Screen Neg Diagnostic Findings CTA CHEST/LUNGS 04/23/21: Thyroid: Imaged portions of the thyroid gland are normal in size and attenuation. Thoracic aorta: There is mild atherosclerotic calcification of the thoracic aorta, which is normal in caliber and demonstrates standard 3-vessel arch anatomy. No dissection is seen. Pulmonary vasculature: The pulmonary trunk is normal in caliber. There are no filling defects identified in main, lobar, or segmental pulmonary branches to suggest pulmonary embolus. Heart: The heart is mildly enlarged and without pericardial effusion. There are scattered coronary artery calcifications. Lungs and pleural spaces: Evaluation of the lung parenchyma is degraded by motion artifact. There is no airspace consolidation or pleural effusion. Atelectasis is noted at the lung bases. The trachea and central airways are clear. A 4 mm left lower lobe pulmonary nodule is seen on image #66. There are scattered calcified granulomas. Mediastinum: There is no mediastinal lymphadenopathy. Litzy: Clear. Axillae: There is no axillary lymphadenopathy. Upper abdomen: Partially visualized upper abdominal viscera is within normal limits. Skeletal structures: The skeletal structures are osteopenic. No lytic or blastic bony lesions are seen. IMPRESSION: 1. There is no evidence of pulmonary embolus in the main, lobar, or segmental pulmonary arteries. 2. There is no airspace consolidation or pleural effusion. 3. Mild cardiomegaly. 4. There is a 4 mm left lower lobe pulmonary nodule. This can be followed as per the Fleischner criteria if clinically warranted. 5. Additional findings as above. Medications Administered Medications multivitamin 1 tab PO DAILY 06/30/19 [History Confirmed 04/23/21] Wheeled Walker #1 ea 01/04/21 [Rx Confirmed 04/23/21] calcium carbonate [Calcium 500] 500 mg PO QPM 01/18/21 [History Confirmed 04/23/21] sertraline 25 mg PO QPM 01/18/21 [History Confirmed 04/23/21] carbidopa 25 mg-levodopa 100 mg tablet 2 tab PO UD #210 tab 02/20/21 [Rx Confirmed 04/23/21] atorvastatin 20 mg tablet 20 mg PO QPM #90 tab 03/29/21 [Rx Confirmed 04/23/21] Home Medications Acetaminophen (Acetaminophen 325 Mg Tab) 650 mg PO Q4H PRN PRN Reason: Pain or Fever Stop: 05/23/21 16:49 Apixaban (Apixaban 5 Mg Tablet) 5 mg PO BID RENE Stop: 05/23/21 20:59 Last Admin: 04/24/21 07:57 Dose: 5 mg Documented by: Atorvastatin Calcium (Atorvastatin 20 Mg Tab) 20 mg PO QPM RENE Stop: 05/23/21 20:59 Last Admin: 04/23/21 20:58 Dose: 20 mg Documented by: Carbidopa/Levodopa (Carbidopa/Levodopa 25/100mg Tab) 2 tab PO TID@0900,1300,1700 RENE Stop: 05/23/21 17:59 Last Admin: 04/24/21 12:42 Dose: 2 tab Documented by: Carbidopa/Levodopa (Carbidopa/Levodopa 25/100mg Tab) 1 tab PO HS RENE Stop: 05/23/21 20:59 Last Admin: 04/23/21 20:59 Dose: 1 tab Documented by: Diltiazem HCl (Diltiazem Hcl 5 Mg/Ml 5 Ml Vial) 5 mg IV Q4 PRN PRN Reason: Tachycardia HR >120 sustatined Stop: 05/23/21 16:49 Diltiazem HCl 125 mg/ Dextrose 125 mls @ 5 mls/hr IV .Q24H [facility]; Protocol Stop: 05/23/21 11:59 Last Admin: 04/24/21 12:42 Dose: Not Given Documented by: Lisinopril (Lisinopril 10 Mg Tab) 10 mg PO QAM [facility] Stop: 05/24/21 08:59 Last Admin: 04/24/21 08:43 Dose: 10 mg Documented by: Melatonin (Melatonin 3 Mg Tab) 3 mg PO HS PRN PRN Reason: Sleep Stop: 05/23/21 22:39 Last Admin: 04/23/21 22:53 Dose: 3 mg Documented by: Metoprolol Succinate (Metoprolol Succ 50mg Ext Rel Tab) 50 mg PO QAM [facility] Stop: 05/24/21 09:29 Last Admin: 04/24/21 09:52 Dose: 50 mg Documented by: Multivitamins (Multivitamin Tab) 1 tab PO DAILY [facility] Stop: 05/24/21 08:59 Last Admin: 04/24/21 07:57 Dose: 1 tab Documented by: Multivitamins/Minerals (Calcium 600mg + Vit D 400 Iu Tab) 1 tab PO QPM [facility] Stop: 05/23/21 20:59 Last Admin: 04/23/21 20:58 Dose: 1 tab Documented by: Ondansetron HCl (Ondansetron Inj 2 Mg/Ml 2 Ml Vial) 4 mg IV Q6H PRN PRN Reason: Nausea Stop: 05/23/21 16:49 Polyethylene Glycol (Polyethylene (Miralax) 17 Gm Pack) 17 gm PO DAILY PRN PRN Reason: Constipation Stop: 05/23/21 16:49 Sertraline HCl (Sertraline Hcl 50 Mg Tablet) 25 mg PO QPM [facility] Stop: 05/23/21 20:59 Last Admin: 04/23/21 20:57 Dose: 25 mg Documented by: PG Care Time/CCT Total # of Minutes Spent Total Time Spent with Patient: Total time spent is greater than 50% in coordination of care (as documented) at patient's floor/unit and/or counseling patient:40 Coding Level of Care Code 66070 Subseq Hosp Care Lvl 3 Diagnoses Atrial fibrillation with RVR I48.91 Hypertension I10 Hypertension type: essential hypertension Hyperlipidemia E78.5 Hyperlipidemia type: unspecified Parkinsons disease G20 Time Spent (min) 55 (1) Hyperlipidemia Hyperlipidemia type: unspecified Qualified Code(s): E78.5 - Hyperlipidemia, unspecified (2) Hypertension Hypertension type: essential hypertension Qualified Code(s): I10 - Essential (primary) hypertension
--- NOTE | 2021-04-24 09:37 | XCELERA ---
[id number]
[2021-04-24] MEDS: METOPROLOL SUCC 50MG EXT REL TAB PO SCH (09:52)
--- NOTE | 2021-04-24 12:26 | Cardiology Consultation ---
Date of Consultation April 24, 2021 Assessment & Plan (1) Atrial fibrillation with RVR: She presents with documentation of atrial fibrillation with a rapid heart rate, by history that has been present for about 48 hours now and she has been anticoagulated since yesterday. She is minimally symptomatic with it currently and the rate is a little fast but not unreasonable. She probably had it before based on her symptoms although it was not recorded. My recommendation would be to continue anticoagulation and rate control. I am going to wean off the diltiazem and try to adjust her oral medications for reasonable rate control. We do not need tight rate control since she is asymptomatic and her blood pressure is a little on the low side but if we can get her average under 100 that would probably be beneficial. If she remains in atrial fibrillation for a month we should consider cardioversion. It is likely that she will convert spontaneously on her own but she may not. (2) Anticoagulant long-term use: She does need anticoagulation on a long-term basis and I agree with the use of Eliquis. Based on her age, weight and kidney function she is on the correct dose of 5 mg twice a day. History of Present Illness Reason for Consultation: Atrial fibrillation with rapid heart rate Attending Physician: Toma Gresham MD History of Present Illness This is a 71-year-old woman who has a history of hypertension, dyslipidemia, Parkinson's disease with an obvious tremor, neuropathy, DJD with a recent right knee replacement. She has had an evaluation in 2019 where she was found to have normal left ventricular systolic function but with diastolic dysfunction, mild MR and a 30-day event monitor was offered but the patient declined. The cause of her palpitations was therefore unknown. She then felt quite poorly on the day before admission (April 22, 2021) where she noticed some chest discomfort and some shortness of breath. She came into the emergency room on April 23, 2021 and was found to be in atrial fibrillation with a rapid heart rate, 144 on her initial electrocardiogram at 1156 on April 23, 2021. She was treated with intravenous diltiazem and started on anticoagulation with Eliquis. As of this morning her heart rate was controlled, her electroc ardiogram on April 24, 2021 at 6:22 AM showed a heart rate of 80 bpm. An echocardiogram done on April 24, 2021 showed normal left ventricular systolic function with mild concentric left ventricular hypertrophy and mild mitral regurgitation. At the time of my evaluation she was feeling well, she did not seem to have palpitations and seems relatively unaware of her heart rate. Her heart rate has fluctuated somewhat and she is currently on 5mg/h of diltiazem intravenously and had received 50 mg of metoprolol at around 930 this morning. Her heart rate was acceptable at a little under 100. Allergies Allergy/AdvReac Type Severity Reaction Status Date / Time No Known Drug Allergies Allergy Mild Unknown Verified 04/23/21 14:54 tramadol AdvReac Mild Headache Verified 04/23/21 14:54 Home Medications Medication Instructions Recorded Confirmed Type multivitamin 1 tab PO DAILY 06/30/19 04/23/21 History Wheeled Walker #1 ea 01/04/21 04/23/21 Rx calcium carbonate [Calcium 500] 500 mg PO QPM 01/18/21 04/23/21 History sertraline 25 mg PO QPM 01/18/21 04/23/21 History carbidopa 25 mg-levodopa 100 mg 2 tab PO UD #210 tab 02/20/21 04/23/21 Rx tablet atorvastatin 20 mg tablet 20 mg PO QPM #90 tab 03/29/21 04/23/21 Rx Patient History Medical History Hammer toe History of anxiety History of basal cell carcinoma History of depression History of transesophageal echocardiography (AYESHA) HLD (hyperlipidemia) Osteoarthritis Parkinson's disease Prediabetes A1C 6.0% Surgical History H/O oral surgery History of basal cell carcinoma (BCC) excision History of colonoscopy S/P breast biopsy S/P dilation and curettage S/P tonsillectomy S/P tubal ligation S/P wisdom tooth extraction Family History Mother Kidney disease Hypertension Stroke Brother Sigmoid colon injury Father Kidney disease Spinal stenosis Other Heart disease No family history of adverse response to anesthesia Osteoporosis Social History Smoking Status: Never smoker Second Hand Exposure: Yes (as a child); Hx Alcohol Use: No Hx Substance Use: No Preferred Language: Malay Communication Ability: Effective Visual Impairment: No Limitations Hearing Ability: Normal Help Desk Agent Required: No Beliefs That Will Affect Care: None marital status: Current Living Situation: Family Current Living Situation Comment: with son current occupational status: retired Feels Safe at Home: Yes Dental Care, Regularly: No Physical Activity Frequency: Does not Exercise Seatbelt Use: always Assistive Devices: Walker Review of Systems Review of Systems: All systems reviewed & are unremarkable except as noted in HPI & below Physical Exam Physical Exam: Constitutional: Alert, cooperative and in no distress. HEENT: Unremarkable Neck: No jugular venous distention, carotid pulses are irregular but otherwise normal and equal bilaterally without bruits. Pulmonary: Clear to auscultation bilaterally. Cardiac: Irregular slightly fast rhythm with a soft holosystolic murmur at the apex, no gallop or rub. Abdomen: Soft, nontender with normal bowel sounds. Extremities: No edema. Distal pulses intact. Neurologic: No focal findings, she does have a resting tremor. Gait was not tested. Skin: No rash, ecchymoses or petechiae. Results & Data ([facility]) Vital Signs (Past 12 Hours) Vital Signs Temp Pulse Pulse Resp BP Pulse Ox 04/24/21 11:41 36.7 C 91 H 17 98/60 L 94 04/24/21 09:29 72 04/24/21 07:42 36.6 C 101 H 20 117/65 96 04/24/21 04:06 125 H 144/75 H 04/24/21 03:45 36.9 C 117 H 18 106/67 95 04/24/21 01:52 126/76 04/24/21 01:05 107 H 103/65 04/24/21 00:45 132 H 110/68 Diagnostic Findings Cardiac Enzymes 04/23/21 Range/Units 11:30 Troponin I < 0.015 (0-0.045) ng/ml Lipids 04/24/21 Range/Units 07:44 Triglycerides 183 H (0-150) mg/dl Cholesterol 153 (0-200) mg/dl HDL Cholesterol 41 mg/dl Cholesterol/HDL Ratio 4 CBC 04/24/21 Range/Units 07:44 WBC 11.72 H (4.8-10.8) K/uL RBC 4.13 L (4.2-5.4) M/uL Hgb 11.9 L (12.0-16.0) g/dL Hct 38.2 (37-47) % Plt Count 281 (130-400) K/uL Neut # (Auto) 7.62 H (1.4-6.5) K/uL Lymph # (Auto) 3.16 (1.2-3.4) K/uL Wirt # (Auto) 0.71 H (0.11-0.59) K/uL Eos # (Auto) 0.13 (0-0.5) K/uL Baso # (Auto) 0.07 (0-0.2) K/uL Comprehensive Metabolic Panel 04/23/21 04/24/21 Range/Units 11:30 07:44 Sodium 140 139 (136-145) mmol/L Potassium 3.7 4.7 D (3.5-5.1) mmol/L Chloride 108 H 109 H (98-107) mmol/L Carbon Dioxide 25 23 (21-32) mmol/L BUN 19 H 20 H (7-18) mg/dl Creatinine 0.82 0.78 (0.6-1.2) mg/dl Glucose 135 H 130 H (70-99) mg/dl Calcium 9.0 9.3 (8.5-10.1) mg/dl Intake and Output 04/23/21 04/24/21 04/24/21 22:59 06:59 14:59 Intake Total 84.000 / 115.167 20.5 / 115.167 143.750 / 143.750 Output Total 225 / 525 300 / 525 Balance -141.000 / -409.833 -279.5 / -409.833 143.750 / 143.750 Intake: IV 84.000 / 115.167 20.5 / 115.167 143.750 / 143.750 dilTIAZem HCL 125 mg In 84.000 / 115.167 20.5 / 115.167 143.750 / 143.750 Dextrose 5% 100 ml @ 15 MG/HR 15 mls/hr IV .Q8H20M [facility] Rx#: [id number] Output: Urine 200 / 200 Other 225 / 325 100 / 325 Other: Weight 89.9 kg 90.5 kg Weight Measurement Method Built in [facility] Standing Scale Telemetry: Atrial fibrillation throughout, heart rate around 120 on average in the emergency room, dropping down to around 100 on average this morning. A little bit lower currently. PG Care Time/CCT Total # of Minutes Spent Total Time Spent with Patient: Total time spent is greater than 50% in coordination of care (as documented) at patient's floor/unit and/or counseling patient: Coding Level of Care Code 54299 Initial Inpt Care Lvl 3 Diagnoses Atrial fibrillation with RVR I48.91 Anticoagulant long-term use Z79.01
--- NOTE | 2021-04-24 15:53 | Electrocardiogram Report ---
Test Reason : Blood Pressure : / mmHG Vent. Rate : 144 BPM Atrial Rate : 127 BPM P-R Int : 000 ms QRS Dur : 068 ms QT Int : 282 ms P-R-T Axes : 000 002 -52 degrees QTc Int : 436 ms Poor data quality, interpretation may be adversely affected Atrial fibrillation with rapid ventricular response Abnormal ECG When compared with ECG of 30-JAN-2021 11:05, Atrial fibrillation has replaced Sinus rhythm Vent. rate has increased BY 54 BPM Questionable change in QRS axis Confirmed by August Jang ([id number]) on 04/24/2021 3:53:21 PM Referred By: Vandana Greenberg Confirmed By:August Jang
[2021-04-24] MEDS: ATORVASTATIN 20 MG TAB PO SCH (21:03)
[2021-04-24] MEDS: CALCIUM 600MG + VIT D 400 IU TAB PO SCH (21:03)
[2021-04-24] MEDS: MELATONIN 3 MG TAB PO PRN (21:04)
[2021-04-24] MEDS: SERTRALINE HCL 50 MG TABLET PO SCH (21:04)
[2021-04-25 06:59] LABS: Basophils # (auto) 0.05 K/uL (0-0.2); Basophils % (auto) 0.5 %; Eosinophils # (auto) 0.26 K/uL (0-0.5); Eosinophils % (auto) 2.7 %; Hemoglobin 11.6 g/dL (12.0-16.0); Immature Granulocytes # (auto) 0.02 K/uL (0.00-0.02); Immature Granulocytes % (auto) 0.2 %; Lymphocytes # (auto) 3.09 K/uL (1.2-3.4); Lymphocytes % (auto) 32.7 %; Mean Corpuscular Hemoglobin 28.9 pg (25-34); Mean Corpuscular Hgb Conc 31.4 g/dL (32-36); Mean Platelet Volume 10.1 fL (7.4-10.4); Monocytes # (auto) 0.58 K/uL (0.11-0.59); Monocytes % (auto) 6.1 %; Neutrophils # (auto) 5.46 K/uL (1.4-6.5); Neutrophils % (auto) 57.8 %; Platelet Count 268 K/uL (130-400); RDW Coefficient of Variation 14.1 % (11.5-14.5); RDW Standard Deviation 47.9 fL (36.4-46.3); Red Blood Count 4.02 M/uL (4.2-5.4); White Blood Count 9.46 K/uL (4.8-10.8)
[2021-04-25 07:29] LABS: Calcium 9.1 mg/dl (8.5-10.1); Creatinine Clr Calc Pharmacy 80.8 ml/min; Est GFR (African American) 96.7 ml/min; Est GFR (Non-African American) 83.4 ml/min; Magnesium 2.2 mg/dl (1.8-2.4); Potassium 4.4 mmol/L (3.5-5.1)
[2021-04-25] MEDS: METOPROLOL SUCC 50MG EXT REL TAB PO SCH (08:10)
[2021-04-25] MEDS: CARBIDOPA/LEVODOPA 25/100MG TAB PO SCH ×2 (08:10→13:24)
[2021-04-25] MEDS: APIXABAN 5 MG TABLET PO SCH (08:10)
[2021-04-25] MEDS: lisinopril 10 MG TAB PO SCH (08:11)
[2021-04-25] MEDS: MULTIVITAMIN TAB PO SCH (08:11)
--- NOTE | 2021-04-25 10:32 | Cardiology Progress Note ---
Date of Service April 25, 2021 Assessment & Plan (1) Atrial fibrillation with RVR: She presented with documentation of atrial fibrillation with a rapid heart rate, by history that had been present for several days and she has been anticoagulated since admission. She was felt to be minimally symptomatic with it and the rate was a little fast but not unreasonable. She probably had episodes before based on her symptoms although they were not recorded. That has now converted spontaneously to sinus rhythm. She feels better this morning so she evidently had symptoms related to it even though the sensation of palpitations was fairly mild. Her heart rate prior to conversion however was s till quite high, averaging around 120 bpm. She was started on Metoprolol succinate 50 mg daily yesterday prior to conversion but that evidently was not sufficient to control her heart rate. I would recommend going up to 100 mg daily and consider discontinuing the lisinopril. Her heart rate is not slow in sinus rhythm so I do not think we will run into bradycardia, however her blood pressure is on the low side and she may become hypotensive. I think we need more rate control and eliminating lisinopril and going up on beta-blockade would probably be a better option. My recommendation would be to continue anticoagulation and rate control. She will almost certainly have further episodes. If she has asymptomatic episodes and is on rate control and anticoagulation that is an acceptable endpoint. If symptoms become an issue we can add an antiarrhythmic. I can arrange follow-up in our office for 3 to 4 weeks. (2) Anticoagulant long-term use: She does need anticoagulation on a long-term basis and I agree with the use of Eliquis. Based on her age, weight and kidney function she is on the correct dose of 5 mg twice a day. Admission and Anticipated Discharge Date Admission Date: April 23, 2021 Subjective She converted from atrial fibrillation to sinus rhythm at around 1:14 AM this morning. She definitely feels better this morning, it is not a specific feeling such as lack of palpitations but she tells me she does feel distinctly better. Evidently she is not asymptomatic during arrhythmia although does not recognize the palpitations precisely. Her heart rate was not well controlled before conversion so that could potentially improve her symptoms during atrial fibrillation. Physical Exam Physical Exam: Constitutional: Alert, cooperative and in no distress. HEENT: Unremarkable Neck: No jugular venous distention, carotid pulses are normal and equal bilaterally without bruits. Pulmonary: Clear to auscultation bilaterally. Cardiac: Regular rhythm with a soft holosystolic murmur at the apex, no gallop or rub. Abdomen: Soft, nontender with normal bowel sounds. Extremities: No edema. Distal pulses intact. Neurologic: No focal findings, she does have a resting tremor. Gait was not tested. Skin: No rash, ecchymoses or petechiae. Results & Data ([facility]) Vital Signs (Past 12 Hours) Vital Signs Temp Pulse Pulse Resp BP BP Pulse Ox 04/25/21 09:09 88 04/25/21 07:59 36.6 C 83 17 121/70 97 04/25/21 04:13 36.7 C 100 H 16 124/75 93 04/25/21 01:01 120 H 04/24/21 23:48 36.9 C 136 H 18 116/69 95 Laboratory Results CBC 04/25/21 Range/Units 06:36 WBC 9.46 (4.8-10.8) K/uL RBC 4.02 L (4.2-5.4) M/uL Hgb 11.6 L (12.0-16.0) g/dL Hct 37.0 (37-47) % Plt Count 268 (130-400) K/uL Neut # (Auto) 5.46 (1.4-6.5) K/uL Lymph # (Auto) 3.09 (1.2-3.4) K/uL [place] # (Auto) 0.58 (0.11-0.59) K/uL Eos # (Auto) 0.26 (0-0.5) K/uL Baso # (Auto) 0.05 (0-0.2) K/uL Comprehensive Metabolic Panel 04/25/21 Range/Units 06:36 Sodium 140 (136-145) mmol/L Potassium 4.4 (3.5-5.1) mmol/L Chloride 109 H (98-107) mmol/L Carbon Dioxide 27 (21-32) mmol/L BUN 22 H (7-18) mg/dl Creatinine 0.73 (0.6-1.2) mg/dl Glucose 111 H (70-99) mg/dl Calcium 9.1 (8.5-10.1) mg/dl Intake and Output 04/24/21 04/25/21 04/25/21 22:59 06:59 14:59 Intake Total 250 / 873.750 Output Total 125 / 1425 950 / 1425 Balance -125 / -551.250 -700 / -551.250 Intake: Oral 250 / 730 Output: Urine 950 / 1300 Other 125 / 125 Other: Weight 89.6 kg Weight Measurement Method Standing Scale Diagnostic Findings Her electrocardiogram from this morning at 4:12 AM shows sinus rhythm and is normal. Telemetry: Atrial fibrillation with average heart rate of around 110-120 until conversion at 1:[address] without a sinus pause. PG Care Time/CCT Total # of Minutes Spent Total Time Spent with Patient: Total time spent is greater than 50% in coordination of care (as documented) at patient's floor/unit and/or counseling patient: Coding Level of Care Code 63419 Subseq Hosp Care Lvl 2 Diagnoses Atrial fibrillation with RVR I48.91 Anticoagulant long-term use Z79.01
--- NOTE | 2021-04-25 12:51 | Electrocardiogram Report ---
Test Reason : Blood Pressure : / mmHG Vent. Rate : 080 BPM Atrial Rate : 340 BPM P-R Int : 000 ms QRS Dur : 066 ms QT Int : 348 ms P-R-T Axes : 000 016 -19 degrees QTc Int : 401 ms Poor data quality, interpretation may be adversely affected Atrial fibrillation Nonspecific T wave abnormality Abnormal ECG When compared with ECG of 23-APR-2021 12:05, (unconfirmed) HR has decreased Confirmed by August Jang ([id number]) on 04/25/2021 12:50:56 PM Referred By: Vandana Greenberg Confirmed By:August Jang
[2021-04-25] MEDS: dilTIAZem HCL 125 MG in DEXTROSE 5% 100 ML IV SCH (12:55)
--- NOTE | 2021-04-25 16:23 | Discharge Summary ---
Date of Service date of admission - April 23, 2021 date of discharge - April 25, 2021 Admission HPI Per Admitting Provider 71 YOF with past medical history of HTN (recently started on Lisinopril by PCP), Hyperlipidemia, Parkinson disease, neuropathy, DJD, s/p total R TKA (03/16). Patient reports that her rehab was doing well and she seen her PCP on Friday and was recently started on lisinopril for her HTN. She started feeling "off" on Friday, which what was further described as some palpitations in her chest as well as some tightness along her chest, she was also noting that she was having some dizziness when standing and more dyspnea than she normally has when walking with her walker. She denies any syncope or any other neurological changes. She was brought to the EMD by her son, and was noted to be in narrow complex irregular rhythm with rates to the 150's. She was already started on Diltiazem drip following a 10mg bolus which decreased her HR to the 120's, but was back in the 140's on my evaluation, she had a CTA of her chest performed secondary to her elevated D-dimer, which did not reveal a PE or other acute chest/cardiac pathology. This does appear to be new onset afib for this patient, we will admit patient to the hospital for rate control, start on Eliquis, ECHO, and cardiology consult for rhythm control evaluation and continue workup for other causes. She does recall going to cardiology in the past for possible mitral valve prolapse and some palpitations, this was noted to be in 2018, her last ECHO reviewed from 2001 showed small right to left atrial shunting and mitral valve prolapse and trivial mitral regurgitation. Her last colonoscopy in 2010 was normal and she denies any history of blood in her stools or abnormal bleeding. As we are unsure of her onset of atrial fibrillation and possibility of rhythm control, after a long discussion with her and her son regarding anticoagulation options and risks, we elected to start the patient on Eliquis 5mg PO BID. Her CHADSVASC is 4 (if include thoracic aortic plaque seen on CTA chest) and HAS- BLED is 2. Principal Diagnosis atrial fibrillation with RVR - resolved, spontaneous conversion to NSR Discharge Exam Constitutional well developed and well nourished; no acute distress and no altered mental status ENMT external ear and nose normal, oropharynx normal Respiratory normal respiratory effort, lungs clear to auscultation Cardiovascular Rate/Rhythm: regular rate and regular rhythm Heart Sounds: normal S1 and normal S2; no murmur Vessels: posterior tibial pulses present and dorsalis pedis pulses present; no JVD Extremities: no edema Gastrointestinal (Abdomen) normal bowel sounds, soft, nontender, no hepatosplenomegaly Musculoskeletal right knee TKR incision fully healed Neurologic Motor/Sensory: + tremor Psychiatric A+Ox3, euthymic affect Discharge Data Allergies Allergy/AdvReac Type Severity Reaction Status Date / Time No Known Drug Allergies Allergy Mild Unknown Verified 04/23/21 14:54 tramadol AdvReac Mild Headache Verified 04/23/21 14:54 Consultations Lung Nodule Program [facility] Ordered Studies Chest CTA 04/23/21 12:13 CT ANGIOGRAM OF THE CHEST CLINICAL HISTORY: Atypical chest pain. Dyspnea. COMPARISON STUDY: Chest x-ray dated 01/30/2021. TECHNIQUE: Following the IV administration of 120 cc of Optiray 320, CT ang iogram of the chest was performed from the upper abdomen to the thoracic inlet utilizing the pulmonary embolus protocol. Images are reviewed in the axial, sagittal, and coronal planes. 3-D MIPS images are created and assessed. IV contrast was administered without complication. A dose lowering technique was utilized adhering to the principles of ALARA. CT DOSE: 634.69 mGy.cm FINDINGS: Thyroid: Imaged portions of the thyroid gland are normal in size and attenuation. Thoracic aorta: There is mild atherosclerotic calcification of the thoracic aorta, which is normal in caliber and demonstrates standard 3-vessel arch anatomy. No dissection is seen. Pulmonary vasculature: The pulmonary trunk is normal in caliber. There are no filling defects identified in main, lobar, or segmental pulmonary branches to suggest pulmonary embolus. Heart: The heart is mildly enlarged and without pericardial effusion. There are scattered coronary artery calcifications. Lungs and pleural spaces: Evaluation of the lung parenchyma is degraded by motion artifact. There is no airspace consolidation or pleural effusion. Atelectasis is noted at the lung bases. The trachea and central airways are clear. A 4 mm left lower lobe pulmonary nodule is seen on image #66. There are scattered calcified granulomas. Mediastinum: There is no mediastinal lymphadenopathy. Litzy: Clear. Axillae: There is no axillary lymphadenopathy. Upper abdomen: Partially visualized upper abdominal viscera is within normal limits. Skeletal structures: The skeletal structures are osteopenic. No lytic or blastic bony lesions are seen. IMPRESSION: 1. There is no evidence of pulmonary embolus in the main, lobar, or segmental pulmonary arteries. 2. There is no airspace consolidation or pleural effusion. 3. Mild cardiomegaly. 4. There is a 4 mm left lower lobe pulmonary nodule. This can be followed as per the Fleischner criteria if clinically warranted. 5. Additional findings as above. Please refer to below summary of Fleischner criteria recommendations for follow- up of incidental CT nodules (Oscar Marcus, Guidelines for management of small pulmonary nodules detected on CT scans: A statement from the Fleischner Society, Radiology 237: [phone].) SOLID NODULES Solitary nodule size: <6 mm * low risk patients: no follow-up needed * high risk patients: optional CT at 12 months Solitary nodule size: 6-8 mm * low risk patients: follow-up at 6-12 months, then consider further follow-up at 18-24 months * high risk patients: initial follow-up CT at 6-12 months and then at 18-24 months if no change Solitary nodule size: >8 mm * either low or high risk patients - consider follow-up CT at 3 months, and/or CT-PET, and/or biopsy Multiple nodules size: <6 mm * low risk patients: no routine follow-up * high risk patients: optional CT at 12 months Multiple nodules size: 6-8 mm * low risk patients: follow-up at 3-6 months, then consider further follow-up at 18-24 months * high risk patients: follow-up at 3-6 months, then at 18-24 months if no change Multiple nodules size: >8 mm * low risk patients: follow-up at 3-6 months, then consider further follow-up at 18-24 months * high risk patients: follow-up at 3-6 months, then at 18-24 months if no change Note: newly detected indeterminate nodule in persons 35 years of age or older. * low risk patients: minimal or absent history of smoking and/or other known risk factors * high risk patients: history of smoking or of other known risk factors (e.g. first degree relative with lung cancer, or exposure to asbestos, radon, uranium) * if a nodule up to 8 mm is partly solid or is ground glass further follow-up is required after 24 months to exclude possible slow growing adenocarcinoma (MAE) SUBSOLID NODULES Solitary pure ground-glass nodule * nodule size <6 mm - no CT follow-up required * nodule size >=6 mm - follow-up CT at 6-12 months, then every 2 years until 5 years Solitary part-solid nodule * nodule size <6 mm - no CT follow-up required * nodule size >=6 mm - follow-up CT at 3-6 months. If unchanged, and solid component remains <6 mm, then annual follow-up for 5 years Multiple subsolid nodules * nodule size <6 mm - follow-up CT at 3-6 months, consider further follow-up at 2 and 4 years if stable * nodule size >=6 mm - follow-up CT at 3-6 months, subsequent management based on the most suspicious nodule(s) ACT 112: Negative or not required by law. Electronically signed by: Sylvester Mills M.D. 04/23/2021 1:49 PM Echocardiogram - * EF 55-60% * mild LVH * mild biatrial enlargement * mild mitral regurgitation * no regional wall motion abnormalities Hospital Course (1) Atrial fibrillation with RVR: Patient was admitted to the telemetry unit for rate control and initiation of anticoagulation given her high CHADsVASc score. She underwent echocardiogram showing preserved EF and normal valvular function. TSH was wnl. K and magnesium levels were wnl. CTA chest did not reveal PE. She did not have complicating acute CHF from her a.fib. She was seen in consult by [facility] who provided schafer recommendations for her care. Fortunately she spontaneously converted to normal sinus rhythm on the AM of 04/25/21. She remained in NSR for the remainder of her stay. At discharge the following were recommended -- * metoprolol succinate 100mg daily * apixaban 5mg BID She will follow-up with Dr August Jang in the [facility] clinic within 2-3 weeks of discharge. She was asked to monitor her pulse at home by using a FitBit device, BP cuff with heart rate monitoring capability, phone Alejandro, etc. (2) Status post total right knee replacement: 02/27/21 - Dr Nelson Roach. Making good recovery from the surgery. Incision well-healed during this brief stay. (3) Prediabetes: HbA1c was 5.8% on 04/18/21. Continue efforts at weight loss and dietary control. (4) Parkinson's disease: Known, established diagnosis. Continue sinemet. (5) Pulmonary nodule, left: Incidental finding on CTA chest. 4mm, LLL. Referral to [facility] Pulmonary Nodule Program. Patient made aware of this finding and need for follow-up. Total Time Total Time Spent Total Time Spent (In Minutes): 40 Total Time Includes: Examination of the Patient, Discharge Planning, Medication Reconciliation and Communication With Other Providers Discharge Plan Discharge Items Patient Disposition: Home - Self-Care Reason For Visit: Atrial Fibrillation Discharge Diagnosis: Atrial Fibrillation - converted back to normal rhythm early in the morning of 04/25/21 Activity: Resume your previous activity Non-emergency contact: Primary Care Provider and [employer] Call non-emergency contact if: you have any medication questions and your symptoms worsen Follow-up/Referrals: August Jang MD [Physician] - (see Dr Jang in 2-3 weeks; his office will be contacting you for an appointment ) Vandana Boucher MD [Primary Care Provider] - (see Dr rCaven as scheduled ) Diet: Heart Healthy Addtl Attending Provider Instructions: Ms Steiner, You were admitted to the hospital due to rapid atrial fibrillation ("a.fib"). You were started on medications to slow your heart rate down. We also started blood thinner medication while you were hospitalized. Fortunately, on the morning of 04/25/21, you converted back to normal rhythm. Testing to rule out certain causes of a.fib were performed including electrolytes, thyroid function, and a CT scan of the lungs to rule out blood clots. The CT of the chest did NOT show blood clots fortunately. Your electrolytes were normal. Your thyroid function was normal. Blood tests for your heart were normal (no evidence of heart attack). We also performed a heart ultrasound (echocardiogram) and this showed normal heart function (normal pumping ability of the heart). [facility] saw you in consult for the a.fib. Dr Jang plans to see you in his office for the a.fib in a few weeks. He has recommended the following - * metoprolol succinate 100mg once daily, first dose TOMORROW on April 26, 2021 * Eliquis 5mg twice daily - this is your blood thinner; take your first dose TONIGHT. Please see the "blood thinner" instructions below for more information. I would recommend that you purchase a "fit bit" watch so you can monitor your heart rate day-to-day at home. There are also apps on phones now that can monitor your heart rate. Lastly, we incidentally saw a small nodule on your CAT scan of the lungs. The vast majority of these are benign. It is in the bottom of the left lung. You will need follow-up for this. I am going to refer you to the "[facility] Pulmonary Nodule" program who will coordinate follow-up for this. See handout. Follow-up - see separate section Return to [facility] if - * you have significant bleeding from the nose, your GI tract, your bladder, etc * you are concerned you have returned to a.fib and the heart rate is consist ently fast (over 100 and it persists) * you have chest pain or shortness of breath * any other concerns Stay well! -Dr Demetri Baxtertl [employer] Provider Instructions: Anticoagulation (Blood thinner) Instructions: Your A.fib condition is typically treated with an anticoagulant. Anticoagulants will thin your blood to help prevent clots from forming in the heart. Your blood thinner is "ELIQUIS." * You should take your medication exactly as directed. * Never skip a dose. * Never take a double dose. If you miss a dose, take it as soon as you re member. Call your Primary Care doctor or [facility] if you experience any of the following: * Chest Pain * Sudden Shortness of Breath * Rapid or pounding heart beat * Fainting * Dizziness * Cough with blood or bloody sputum * Sweating more than normal * Bruises * Heavy or uncontrolled bleeding * Blood in your urine, stool or vomit * Black or tarry stools * Heavy nose bleeding Pending Studies at Discharge: No Stand-Alone Forms: [email or web address], Smoking Cessation Medications and DC Order Prescriptions: New Eliquis 5 mg Tablet 5 mg PO BID Qty: 60 RF: 5 Continued (DME) Wheeled Walker Misc See Rx Instructions .MEDSUPPLY Qty: 1 RF: 0 atorvastatin 20 mg tablet 20 mg PO QPM Qty: 90 RF: 3 multivitamin [Daily Multi-Vitamin] tablet 1 tab PO DAILY RF: 0 carbidopa-levodopa 25-100 mg tablet 2 tab PO UD Qty: 210 RF: 5 calcium carbonate [Calcium 500] 500 mg calcium (1,250 mg) tablet 500 mg PO QPM RF: 0 sertraline 25 mg tablet 25 mg PO QPM RF: 0 Discontinued metoprolol succinate 100 mg capsule,sprinkle,ER 24hr 100 mg PO QAM Qty: 30 RF: 5 No Action metoprolol succinate 100 mg tablet extended release 24 hr 100 mg PO DAILY Qty: 30 RF: 5 Discharge Orders: Discharge Order (Routine); Ordered 04/25/21 Ordered By: Isiah Goldman/Other Patient Handouts: Understanding Atrial Fibrillation, ED Pulmonary Nodule, Solitary Admission Data Admit Date/Time: 04/23/21 15:39 Attending Provider: Isiah Mosquera Admit Provider: Dustin Marquez Primary Care Provider: Vandana Boucher V. Other Providers: Toma Gresham ; August Jang Other Interventions: Discharge Summary Assessment (RN) Last Done: 04/25/21 15:21 Coding Level of Care Code None Diagnoses Atrial fibrillation with RVR I48.91 Status post total right knee replacement Z96.651 Prediabetes R73.03 Parkinson's disease G20 Pulmonary nodule, left R91.1 Comment Please see PG E/M entry dated 04/25/21 for coding/billing information.
--- NOTE | 2021-04-25 23:37 | Billing Data ---
Date of Service April 25, 2021 Coding Level of Care Code D/C Day Management >30 mins
--- NOTE | 2021-04-26 11:36 | Electrocardiogram Report ---
Test Reason : Blood Pressure : / mmHG Vent. Rate : 083 BPM Atrial Rate : 083 BPM P-R Int : 154 ms QRS Dur : 070 ms QT Int : 354 ms P-R-T Axes : 055 015 001 degrees QTc Int : 415 ms Poor data quality, interpretation may be adversely affected Normal sinus rhythm Normal ECG When compared with ECG of 24-APR-2021 06:22, (unconfirmed) Sinus rhythm has replaced Atrial fibrillation Confirmed by August Jang ([id number]) on 04/26/2021 11:35:47 AM Referred By: Vandana Greenberg Confirmed By:August Jang
== END 2021-04-25 16:32 | disposition home or self-care (01) | DRG 310 ==
LOC: ED 10:59 → 2S 15:39 → SUATTDRO 15:39 → 2S 15:56